=== PATIENT | female | born 1945 | race Caucasian/White ===

== ENCOUNTER → 2016-07-29 | Outpatient (CLI) | payer MEDICARE, BC ==
--- NOTE | 2016-07-30 11:08 | MM ---
Reason for exam: screening (asymptomatic). Last mammogram was performed 11 years and 3 months ago. History: Patient is postmenopausal. Family history of breast cancer. Benign ultrasound-guided cyst aspiration of the left breast, February 04, 2000. Cyst aspiration of the left breast. Physical Findings: A clinical breast exam by your physician is recommended on an annual basis and results should be correlated with mammographic findings. MG 3D Screening Mammo W/Cad Bilateral CC and MLO view(s) were taken. Prior study comparison: July 02, 2015, mammogram, performed at [facility]. The breast tissue is heterogeneously dense. This may lower the sensitivity of mammography. No significant changes when compared with prior studies. ASSESSMENT: Benign, BI-RAD 2 RECOMMENDATION: Routine screening mammogram of both breasts in 1 year.
== END | disposition home or self-care (01) ==
LOC: RADMAMWWP 11:44
PROVIDERS: ATTEND Family Medicine
DX: Z12.31 Encounter for screening mammogram for malignant neoplasm of breast (principal)
CPT/HCPCS: 77063; G0202

== ENCOUNTER 2016-11-02 15:56 | Emergency (ER) | payer MEDICARE, BC ==
[2016-11-02] MEDS ORDERED: HYDROmorphone 1 MG/ML 1 ML SYRINGE IVP STA (16:22)
--- NOTE | 2016-11-02 16:26 | ED ---
General Adult HPI - General Chief complaint: Fall Stated complaint: Fall Time Seen by Provider: 11/02/16 15:58 Source: patient, EMS, RN notes reviewed Mode of arrival: EMS Limitations: no limitations - History of Present Illness Initial comments: 71-year-old female presenting after mechanical fall at home. Patient states she was gardening outside and tripped over a rock and fell onto her left side and right wrist. She states she heard a crack and now has a deformity to her right wrist. She states that both of her hips are hurting as well. She denies any head or neck injury. She denies any loss consciousness. She denies blood thinner use. - Related Data Home Medications Medication Instructions Recorded Confirmed Ezetimibe [Zetia] 10 mg PO HS 11/02/16 11/02/16 Previous Rx's Medication Instructions Recorded Acetaminophen-Codeine 300-30mg 1 tab PO Q6H PRN #16 tablet 11/02/16 [Tylenol #3] Allergies Allergy/AdvReac Type Severity Reaction Status Date / Time hydrocortisone Allergy Rash/Hives Verified 11/02/16 17:50 NSAIDS (Non-Steroidal AdvReac Severe GI Bleeding Verified 11/02/16 17:51 Anti-Inflamma Cjwscnr-[id number]-Dpm Reductase AdvReac Severe Myalgia Verified 11/02/16 17:50 Inhibitor phenylenediamine Allergy Rash/Hives Uncoded 04/29/15 15:00 Review of Systems ROS Statement: Those systems with pertinent positive or pertinent negative responses have been documented in the HPI. ROS Other: All systems not noted in ROS Statement are negative. Past Medical History Past Medical History: Hyperlipidemia, Osteoarthritis (OA) Additional Past Medical History / Comment(s): 05/06/15 PT admitted to floor s/ p total R hip arthroplasty. Other HX OF: BLEEDING ULCER, ANEMIA, hypoglycemia. History of Any Multi-Drug Resistant Organisms: None Reported Past Surgical History: Joint Replacement, Tonsillectomy, Tubal Ligation Additional Past Surgical History / Comment(s): 05/06/15 Total R hip arthroplasty. Other SX HX: CONE BX, EPIDURAL INJECTIONS, LEFT HIP REPLACEMENT Past Anesthesia/Blood Transfusion Reactions: Postoperative Nausea & Vomiting ( PONV) Additional Past Anesthesia/Blood Transfusion Reaction / Comment(s): Pt has recieved blood in the past without reaction. Past Psychological History: No Psychological Hx Reported Additional Psychological History / Comment(s): Pt lives alone. She has an adult son who sometimes stays with her. He children live close. She has a walker and cane to use post-op. She currently was not using any assistive device. She drives. Smoking Status: Never smoker Past Alcohol Use History: Occasional Past Drug Use History: None Reported - Past Family History Mother Family Medical History: Cancer Additional Family Medical History / Comment(s): BLADDER, leukemia, CABG and valve sugeries. Father Family Medical History: Cancer Additional Family Medical History / Comment(s): THROAT, brain. Father at age 54yrs. Brother(s) Family Medical History: Cancer General Exam - General Exam Comments Initial Comments: General: Awake and Alert. No acute distress. Does not appear acutely ill. Eyes: MADHAVI, EOM intact. No nystagmus. No scleral icterus. HENT: Atraumatic, normocephalic. Mucous membranes moist. Trachea midline. No hemotympanum. No epistaxis or evidence of septal hematoma. Neck: The neck is supple, there is no JVD. No posterior neck tenderness. Cardiovascular: Regular rate and rhythm. No murmur, rub, or gallop is appreciated. Distal pulses intact, 2+ DP and radial bilaterally. Respiratory: Lungs are clear to auscultation bilaterally. No wheezes, rales, rhonchi. No respiratory distress. Gastrointestinal: Soft, Nontender. No rebound or guarding. Non-distended. No masses or organomegaly noted. No CVA tenderness. Musculoskeletal: Right wrist with gross deformity, but with good radial pulse. Patient is able to move her fingers on this hand. No other gross deformity. Pelvic rock is intact. Mild tenderness to the left lateral hip. Range of motion is intact on this left hip without pain. No strength deficits. Neurological: A&Ox3. CN II-XII grossly intact, There are no obvious motor or sensory deficits. Coordination appears grossly intact. Speech is normal. Skin: Skin is warm and dry and no rashes or lesions are noted. Psychiatric: Cooperative, appropriate mood & affect, normal judgment. Limitations: no limitations Course Vital Signs 11/02/16 11/02/16 11/02/16 16:00 16:26 18:59 Temperature 98.2 F 97.8 F 98.0 F Pulse Rate 76 85 76 Respiratory 16 18 16 Rate Blood Pressure 148/79 160/92 126/76 O2 Sat by Pulse 98 98 100 Oximetry Procedures - Nerve Block Consent Obtained: verbal consent Time Out Performed: Yes Local Anesthetic Used: Lidocaine 2% Amount of anesthesia used: 10 Side: right Nerve Blocks: hematoma block Procedure Successful: Yes Complications: none Patient Tolerated Procedure: well - Orthopedic Joint Reduction 1 Consent Obtained: verbal consent Time Out Performed: Yes Side: right Joint Reduction Location: wrist Analgesia: hematoma block Local Anesthetic Used: Lidocaine 2% Amount of Anesthetic Used (mLs): 10 Technique Used: direct manipulation Post-Reduction Neuro Exam: intact Post-Reduction Vascular Exam: intact Post Reduction X-Ray Obtained: Yes Post Reduction X-Ray Results: reduced Splint Applied: Yes Patient Tolerated Procedure: well Medical Decision Making - Medical Decision Making 71-year-old female presenting after mechanical fall at home. Initial exam with isolated right wrist injury. No evidence of other significant trauma. Patient is on coumadin per record, but denies any head injury or loss consciousness. Given her age and risk after fall plan for imaging including CT head. Patient arrived in a c-collar to help with stability for transport. She denies neck pain. This collar was cleared clinically without evidence of posterior spinal tenderness. There is good range of motion of the neck without evidence of instability after removal. Patient given medication for pain. Patient does not appear to meet for trauma activation at this time. Laboratory stable CBC, stable BMP. INR is 1.0. Low suspicion of Coumadin use. Wrist x-ray with distal radial fracture. CT head without evidence of acute bleed. Hips and pelvis x-ray without acute findings. CXR with no acute process, congestive changes noted, breathing unlabored, no evidence of CHF exacerbation clinically at this time. Right wrist was reduced after hematoma block performed with good localized anesthesia. Patient tolerated procedure well. After reduction distal hand remained neurovascularly intact. Splint was applied. Repeat imaging was performed with improvement of angulation but still with impacted fracture. Patient and son updated on results and imaging. Discussed fracture management. Discussed need for close orthopedic follow-up. Patient states she would like to follow-up with Dr. Garcia, given follow-up information. Rx for pain medication provided. Discussed concerning signs/symptoms for immediate return to ED. Patient and her son are agreeable with plan and discharge home. - Lab Data Result diagrams: 11/02/16 17:40 11/02/16 17:40 Lab Results 11/02/16 11/02/16 11/02/16 Range/Units 17:40 17:40 17:40 WBC 9.4 (3.8-10.6) k/uL RBC 4.47 (3.80-5.40) m/uL Hgb 13.4 (11.4-16.0) gm/dL Hct 41.1 (34.0-46.0) % MCV 92.0 (80.0-100.0) fL MCH 30.0 (25.0-35.0) pg MCHC 32.6 (31.0-37.0) g/dL RDW 12.9 (11.5-15.5) % Plt Count 293 (150-450) k/uL Neutrophils % 82 % Lymphocytes % 10 % Monocytes % 5 % Eosinophils % 1 % Basophils % 1 % Neutrophils # 7.7 (1.3-7.7) k/uL Lymphocytes # 1.0 (1.0-4.8) k/uL Monocytes # 0.5 (0-1.0) k/uL Eosinophils # 0.1 (0-0.7) k/uL Basophils # 0.1 (0-0.2) k/uL PT 9.9 (9.0-12.0) sec INR 1.0 (<1.1) APTT 19.6 L (22.0-30.0) sec Sodium 139 (137-145) mmol/L Potassium 4.6 (3.5-5.1) mmol/L Chloride 107 (98-107) mmol/L Carbon Dioxide 25 (22-30) mmol/L Anion Gap 7 mmol/L BUN 13 (7-17) mg/dL Creatinine 0.49 L (0.52-1.04) mg/dL Est GFR (MDRD) Af Amer >60 (>60 ml/min/1.73 sqM) Est GFR (MDRD) Non-Af >60 (>60 ml/min/1.73 sqM) Glucose 94 (74-99) mg/dL Calcium 9.1 (8.4-10.2) mg/dL Disposition Clinical Impression: Fracture of right distal radius, Fall Disposition: HOME SELF-CARE Condition: Stable Instructions: Wrist Fracture in Adults (ED) Prescriptions: Acetaminophen-Codeine 300-30mg [Tylenol #3] 1 tab PO Q6H PRN #16 tablet PRN Reason: Pain Referrals: Rahel Cotton MD [Primary Care Provider] - 1-2 days Guilherme Garcia DO [Doctor of Osteopathic Medicine] - 1-2 days Time of Disposition: 18:48
--- NOTE | 2016-11-02 17:03 | CT ---
EXAMINATION TYPE: CT brain wo con DATE OF EXAM: 11/02/2016 4:56 PM HISTORY: Patient complains of dizziness post fall without head trauma today. CT DLP: 1067 mGycm. Automated Exposure Control for Dose Reduction was Utilized. TECHNIQUE: CT scan of the head is performed without contrast. COMPARISON: None. FINDINGS: There is no acute intracranial hemorrhage or midline shift identified. There is diffuse v entricular and sulcal prominence consistent with diffuse age-related cerebral atrophy. There is low- attenuation in the periventricular white matter consistent with chronic small vessel ischemic change. The globes are intact and the visualized sinuses are clear. IMPRESSION: No acute intracranial hemorrhage or midline shift. There is mild diffuse age-related ce rebral atrophy and chronic small vessel ischemic change noted.
--- NOTE | 2016-11-02 17:26 | XR ---
EXAMINATION TYPE: XR Hip Bilateral and AP pelvis DATE OF EXAM: 11/02/2016 5:15 PM COMPARISON: 05/06/2015 right hip HISTORY: Pain after fall TECHNIQUE: A single AP view of the pelvis is obtained. Two views of both hips were obtained. FINDINGS: There is no acute fracture/dislocation evident in the pelvis. The left and sacroiliac lalitha nts appear symmetric. Left hip arthroplasty is in place. Arthroplasties demonstrate no evidence of lo osening. Heterotopic ossification surrounds the right greater and lesser trochanters. No displaced fr acture is seen on the right. Retained stool is seen within the rectum overlying the pubic symphysis.. The overlying soft tissue appears unremarkable. No focal lytic or sclerotic lesion seen in the proximal femurs. The overlying soft tissue is unremar kable. IMPRESSION: There is no acute fracture or dislocation in the pelvis or either hip. Bilateral arthrop lasties without evidence of loosening.
--- NOTE | 2016-11-02 17:29 | XR ---
EXAMINATION TYPE: XR wrist complete RT DATE OF EXAM: 11/02/2016 5:15 PM COMPARISON: NONE HISTORY: Right wrist pain after fall TECHNIQUE: 3 views of the right wrist were obtained FINDINGS: There is a comminuted, impacted and displaced fracture of the distal radius with intra-olivia cular extension. The distal fragment is displaced dorsally and minimally radially. Dorsal displacemen t is approximately 1.5 cm. Foreshortening is approximately 11 mm and radial displacement is approxima tely 8 mm. No overt fracture of the ulna. Carpal rows appear appear maintained. Soft tissue swelling surrounds the right wrist. IMPRESSION: Comminuted, intra-articular, dorsally and minimally radially displaced distal radial frac ture with foreshortening.
--- NOTE | 2016-11-02 17:30 | XR ---
EXAMINATION TYPE: XR chest 2V DATE OF EXAM: 11/02/2016 5:15 PM COMPARISON: NONE HISTORY: Fall today TECHNIQUE: Frontal and lateral views of the chest are obtained. FINDINGS: There are low lung volumes accentuating the pulmonary vasculature. There is cardiomegaly a nd mild pulmonary vascular congestion. There is also blunting of the costophrenic angles likely relat ing to trace pleural effusions. No focal consolidation is seen. No displaced fractures are seen. IMPRESSION: Cardiomegaly and mild pulmonary vascular congestion accentuated by low lung volumes. No displaced fracture.
[2016-11-02 17:49] LABS: Basophils # (A) 0.1 k/uL (0-0.2); Basophils % (A) 1 %; CH 30.7; CHCM 33.5; Eosinophils # (A) 0.1 k/uL (0-0.7); Eosinophils % (A) 1 %; HCT 41.1 % (34.0-46.0); HDW 2.46; HGB 13.4 gm/dL (11.4-16.0); Luc # (Auto) 0.13; Luc % (Auto) 1; Lymphocytes % (A) 10 %; MCHC 32.6 g/dL (31.0-37.0); Mean Platelet Volume 7.3; Monocytes # (A) 0.5 k/uL (0-1.0); Monocytes % (A) 5 %; Neutrophils # (A) 7.7 k/uL (1.3-7.7); Neutrophils % (A) 82 %; RBC 4.47 m/uL (3.80-5.40); RDW 12.9 % (11.5-15.5); WBC 9.4 k/uL (3.8-10.6); WBC (Perox) 9.56
[2016-11-02 18:09] LABS: Anion Gap 7 mmol/L; Blood Urea Nitrogen 13 mg/dL (7-17); Calcium 9.1 mg/dL (8.4-10.2); Carbon Dioxide 25 mmol/L (22-30); Chloride 107 mmol/L (98-107); Glucose 94 mg/dL (74-99); Non-African American GFR(MDRD) >60 (>60 ml/min/1.73 sqM); Sodium 139 mmol/L (137-145)
[2016-11-02 18:12] LABS: Prothrombin Time 9.9 sec (9.0-12.0)
[2016-11-02 18:15] LABS: Partial Thromboplastin Time 19.6 sec (22.0-30.0)
[2016-11-02 18:19] LABS: Potassium 4.6 mmol/L (3.5-5.1)
--- NOTE | 2016-11-02 18:41 | XR ---
EXAMINATION TYPE: XR wrist limited RT DATE OF EXAM: 11/02/2016 6:15 PM COMPARISON: NONE HISTORY: Fracture TECHNIQUE: 2 view postreduction radiograph. FINDINGS: In addition to the previously described distal right radial fracture, which has slightly im proved anatomic alignment there is an additional ulnar styloid fracture with 4 mm radial displacement . The degree of dorsal displacement of the distal fracture fragments of the distal radial fracture andrew s improved from 15 mm to 10 mm. Additionally there is less impaction than on the prior exam. Overlyin g soft tissue swelling remains. IMPRESSION: 1. Improved anatomic alignment post reduction with persistent dorsal displacement of the distal radia l fracture fragments and foreshortening. 2. Ulnar styloid fracture with 4 mm radial displacement.
[2016-11-02] MEDS ORDERED: ACET/COD 300 MG/30 MG STARTER PACK 6 TAB BTL PO STA (18:47)
[2016-11-02 19:00] VITALS: BP 126/76; PULSE 76; RESP 16; TEMP 98
== END 2016-11-02 18:59 | disposition home or self-care (01) ==
LOC: EC 15:56
DX: S52.501A Unspecified fracture of the lower end of right radius, initial encounter for closed fracture (principal); E78.5 Hyperlipidemia, unspecified; Z79.899 Other long term (current) drug therapy; Z88.6 Allergy status to analgesic agent; Z88.8 Allergy status to other drugs, medicaments and biological substances; W01.0XXA Fall on same level from slipping, tripping and stumbling without subsequent striking against object, initial encounter; Y92.009 Unspecified place in unspecified non-institutional (private) residence as the place of occurrence of the external cause
CPT/HCPCS: 36415; 80048; 85025; 85610; 85730; 71020; 73521; 73100; 73110; 70450; 99284; 25605; 96374; J1170

== ENCOUNTER → 2017-08-04 | Outpatient (CLI) | payer MEDICARE, BC ==
--- NOTE | 2017-08-05 13:10 | MM ---
Reason for exam: screening (asymptomatic). Last mammogram was performed 1 year ago. History: Patient is postmenopausal. Family history of breast cancer. Benign ultrasound-guided cyst aspiration of the left breast, February 04, 2000. Cyst aspiration of the left breast. Physical Findings: A clinical breast exam by your physician is recommended on an annual basis and results should be correlated with mammographic findings. MG 3D Screening Mammo W/Cad Bilateral CC and MLO view(s) were taken. Prior study comparison: July 29, 2016, bilateral MG 3d screening mammo w/cad. July 02, 2015, mammogram, performed at [facility]. The breast tissue is heterogeneously dense. This may lower the sensitivity of mammography. Stable benign calcifications. There is chronic nodularity bilaterally. There is no dominant lesion. No significant changes when compared with prior studies. ASSESSMENT: Benign, BI-RAD 2 RECOMMENDATION: Routine screening mammogram of both breasts in 1 year.
== END | disposition home or self-care (01) ==
LOC: RADMAMWWP 07-19 13:29
PROVIDERS: ATTEND Family Medicine
DX: Z12.31 Encounter for screening mammogram for malignant neoplasm of breast (principal)
CPT/HCPCS: 77063; 77067

== ENCOUNTER → 2018-08-18 | Outpatient (CLI) | payer MEDICARE, BC ==
--- NOTE | 2018-08-18 14:43 | XR ---
EXAMINATION TYPE: XR cervical spine comp DATE OF EXAM: 08/18/2018 COMPARISON: NONE HISTORY: Pain TECHNIQUE: Four views are submitted. FINDINGS: The odontoid is intact. There are no compression deformities. The prevertebral soft tissue structur es are within normal limits. There is multilevel facet arthropathy and degenerative disc disease and grade 1 anterolisthesis of C4 on C5. Severe degenerative disc disease C5-6 and C6-C7 with anterior hypertrophic spurring. Lung apices are clear. Diffuse osteopenia noted. Foraminal encroachment level C4-C7 bilaterally. [place] toid view limited but grossly intact. IMPRESSION: 1. Severe multilevel degenerative disc disease and facet arthropathy with grade 1 anterolisthesis C4 on C5. Recommend follow-up MRI. Multilevel foraminal encroachment suspected.
--- NOTE | 2018-08-18 14:50 | XR ---
EXAMINATION TYPE: XR shoulder complete LT DATE OF EXAM: 08/18/2018 COMPARISON: NONE HISTORY: Pain TECHNIQUE: Three views are submitted. FINDINGS: Diffuse osteopenia. There is narrowing of the glenohumeral joint. Mild hypertrophic change of the AC joint. No acute fracture. No dislocation. No erosive changes. IMPRESSION: 1. Arthropathy.
== END | disposition home or self-care (01) ==
LOC: RADXRMAIN 14:06
PROVIDERS: ATTEND Family Medicine
DX: M19.012 Primary osteoarthritis, left shoulder (principal); M43.12 Spondylolisthesis, cervical region; M50.30 Other cervical disc degeneration, unspecified cervical region; M46.92 Unspecified inflammatory spondylopathy, cervical region
CPT/HCPCS: 72050

== ENCOUNTER 2018-08-25 10:12 | Day surgery (SDC) | payer MEDICARE, BC ==
[2018-08-23 10:35] VITALS: BMI 28.8
[~2018-08-25 10:12] MED LIST: LIDOCAINE 1% 20 ML VIAL (10MG/ML) FOR IV START INTRADERMA PRN
[2018-08-25 10:35] VITALS: TEMP 98.2
[2018-08-25 10:51] LABS: Glucose,Whole Blood 99 mg/dL (75-99)
[2018-08-25] MEDS: LACTATED RINGERS 1,000 ML IV SCH ×2 (10:53→10:54)
[2018-08-25] MEDS ORDERED: PROPOFOL 10 MG/ML 20 ML VIAL IV ONE (10:56)
[2018-08-25] MEDS ORDERED: LIDOCAINE 1% INJ 10MG/ML (20 ML MDV) ONE (10:56)
[2018-08-25 11:49] VITALS: RESP 16
--- NOTE | 2018-08-25 11:49 | P.PCN ---
Date of Procedure: 08/25/18 Description of Procedure: BRIEF HISTORY: The patient is a pleasant 73-year-old female with a medical history significant for hyperlipidemia who presents for outpatient colonoscopy. She reports it has been 10 years since her last colonoscopy. She denies any polyps at that time. No family history of colon cancer. She denies any change in her bowels, constipation, diarrhea, hematochezia or melena. PROCEDURE PERFORMED: Colonoscopy with polypectomy. PREOPERATIVE DIAGNOSIS: Screening colonoscopy, last colonoscopy 10 years ago. ESTIMATED BLOOD LOSS: Minimal. IV sedation per Anesthesia. PROCEDURE: After informed consent was obtained, the patient, was brought into the endoscopy unit. IV sedation was administered by Anesthesia under continuous monitoring. Digital rectal examination was normal. Initially the Olympus CF-190 flexible video colonoscope was then inserted in the rectum, gradually advanced into the cecum without any difficulty. Careful examination was performed as the scope was gradually being withdrawn. Ileocecal valve and the appendiceal orifice were visualized and appeared normal. Prep was good. Mucosa of the cecum, ascending colon, transverse colon, descending colon, sigmoid colon, and rectum appeared normal. Sessile 8 mm polyp in the ascending colon removed with cold snare polypectomy. Sessile 4 mm polyp in the descending colon removed with cold forcep polypectomy. Sessile 2 mm polyp in the rectum removed with cold forcep polypectomy. Moderate sigmoid and descending colon diverticulosis. Retroflexion was performed in the rectum and no lesions were seen, internal hemorrhoids were noted. The patient tolerated the procedure well. IMPRESSION: 1. Ascending colon polyp removed with cold snare polypectomy. Descending and rectal polyps removed with cold forcep polypectomy. 2. Diverticulosis 3. Internal hemorrhoids. RECOMMENDATIONS: Findings of this examination were discussed with the patient and her sons. Await pathology from polypectomies. Okay for high-fiber diet. Repeat colonoscopy in 5 years pending pathology from polypectomies.
[2018-08-25 12:04] VITALS: BP 130/82; PULSE 58
[2018-08-25 12:24] LABS: Glucose,Whole Blood 106 mg/dL (75-99)
== END 2018-08-25 12:59 | disposition home or self-care (01) ==
LOC: ORWHC2ENDO 10:12
PROVIDERS: ATTEND Internal Medicine
DX: Z12.11 Encounter for screening for malignant neoplasm of colon (principal); D12.2 Benign neoplasm of ascending colon; D12.4 Benign neoplasm of descending colon; K62.1 Rectal polyp; K64.8 Other hemorrhoids; Z88.6 Allergy status to analgesic agent; Z88.8 Allergy status to other drugs, medicaments and biological substances; E78.5 Hyperlipidemia, unspecified; M19.90 Unspecified osteoarthritis, unspecified site
CPT/HCPCS: 88305; 45380; 45385; J2001; J2704

== ENCOUNTER → 2018-09-07 | Outpatient (CLI) | payer MEDICARE, BC ==
--- NOTE | 2018-09-07 15:38 | BD ---
EXAMINATION TYPE: Axial Bone Density DATE OF EXAM: 09/07/2018 COMPARISON: NONE CLINICAL HISTORY: Height: 64 Weight: 167.7 FRAX RISK QUESTIONS: Alcohol (3 or more units per day): no Family History (Parent hip fracture): no Glucocorticoids (More than 3mos): no (Ex: prednisone, prednisolone, methylprednisolone, dexamethasone, and hydrocortisone). History of Fracture in Adulthood: yes Secondary Osteoporosis: 1. Type 1 Diabetes: no 2. Hyperthyroidism: no 3. Menopause before 45: no 4. Malnutrition: no 5. Chronic liver disease: no Rheumatoid Arthritis: yes Current Tobacco Use: no RISK FACTORS HISTORY OF: History of Wrist Fracture: right wrist When: 2 years ago Surgery to Spine/Hip(right/left)/Wrist (right/left): bilateral hips replacements Family History of Osteoporosis: no Active: yes Diet low in dairy products/other sources of calcium: yes Postmenopausal woman: age 53 Lost more than 2 inches in height since high school: no MEDICATIONS: zetia Additional History: EXAM MEASUREMENTS: Bone mineral densitometry was performed using the Filtr8 System. Bone mineral density as measured about the Lumbar spine is: ----- L1-L4(G/cm2): 1.006 T Score Values are as follows: ----- L2: -1.9 ----- L3: -0.9 ----- L4: -1.5 ----- L1-L4: -1.5 Bone mineral density has: decreased -8.5 % since study of: 9. Bone mineral density about the L Wrist (g/cm2): 0.508 T Score values are as follows: -----Dist. R+U: -4.4 -----Prox. R+U: -1.7 -----Radius total: -2.8 Bone mineral density : baseline IMPRESSION: 1. Osteoporosis of the forearm. 2. Osteopenia of the lumbar spine. NOTE: T-SCORE=SD OF THE YOUNG ADULT MEAN.
--- NOTE | 2018-09-09 10:20 | MM ---
Reason for exam: screening (asymptomatic). Last mammogram was performed 1 year and 1 month ago. History: Patient is postmenopausal. Family history of breast cancer. Benign ultrasound-guided cyst aspiration of the left breast, February 04, 2000. Cyst aspiration of the left breast. Physical Findings: A clinical breast exam by your physician is recommended on an annual basis and results should be correlated with mammographic findings. MG 3D Screening Mammo W/Cad Bilateral CC and MLO view(s) were taken. Prior study comparison: August 04, 2017, bilateral MG 3d screening mammo w/cad. July 29, 2016, bilateral MG 3d screening mammo w/cad. The breast tissue is heterogeneously dense. This may lower the sensitivity of mammography. Left asymmetric densities are unchanged from 2018. No significant changes when compared with prior studies. ASSESSMENT: Negative, BI-RAD 1 RECOMMENDATION: Routine screening mammogram of both breasts in 1 year.
== END | disposition home or self-care (01) ==
LOC: RADMAMWWP 12:39
PROVIDERS: ATTEND Family Medicine
DX: Z12.31 Encounter for screening mammogram for malignant neoplasm of breast (principal); M81.0 Age-related osteoporosis without current pathological fracture; M85.88 Other specified disorders of bone density and structure, other site
CPT/HCPCS: 77063; 77067; 77080

== ENCOUNTER → 2020-01-23 | Outpatient (CLI) | payer MEDICARE, BC ==
--- NOTE | 2020-01-29 11:03 | MM ---
Reason for exam: screening (asymptomatic). Last mammogram was performed 1 year and 4 months ago. History: Patient is postmenopausal. Family history of breast cancer in 2 aunts. Benign ultrasound-guided cyst aspiration of the left breast, February 04, 2000. Cyst aspiration of the left breast. Took estrogen for 1 year beginning at age 51. Took progesterone for 1 year beginning at age 51. Physical Findings: A clinical breast exam by your physician is recommended on an annual basis and results should be correlated with mammographic findings. MG 3D Screening Mammo W/Cad Bilateral CC and MLO view(s) were taken. Prior study comparison: September 07, 2018, bilateral MG 3d screening mammo w/cad. August 04, 2017, bilateral MG 3d screening mammo w/cad. The breast tissue is heterogeneously dense. This may lower the sensitivity of mammography. No significant changes when compared with prior studies. ASSESSMENT: Benign, BI-RAD 2 RECOMMENDATION: Routine screening mammogram of both breasts in 1 year.
== END | disposition home or self-care (01) ==
LOC: RADMAMWWP 10:43
PROVIDERS: ATTEND Family Medicine
DX: Z12.31 Encounter for screening mammogram for malignant neoplasm of breast (principal)
CPT/HCPCS: 77063; 77067

== ENCOUNTER → 2021-05-02 | Outpatient (CLI) | payer MEDICARE, BC ==
--- NOTE | 2021-05-07 09:04 | MM ---
Reason for exam: screening (asymptomatic). Last mammogram was performed 1 year and 3 months ago. History: Patient is postmenopausal. Family history of breast cancer in maternal aunt at age 72 and breast cancer in aunt. Benign ultrasound-guided cyst aspiration of the left breast, February 04, 2000. Cyst aspiration of the left breast. Took estrogen for 1 year beginning at age 51. Took progesterone for 1 year beginning at age 51. Physical Findings: A clinical breast exam by your physician is recommended on an annual basis and results should be correlated with mammographic findings. MG 3D Screening Mammo W/Cad Bilateral CC and MLO view(s) were taken. Prior study comparison: January 23, 2020, bilateral MG 3d screening mammo w/cad. September 07, 2018, bilateral MG 3d screening mammo w/cad. The breast tissue is heterogeneously dense. This may lower the sensitivity of mammography. No significant changes when compared with prior studies. ASSESSMENT: Negative, BI-RAD 1 RECOMMENDATION: Routine screening mammogram of both breasts in 1 year.
== END | disposition home or self-care (01) ==
LOC: RADMAMWWP 13:52
PROVIDERS: ATTEND Family Medicine
DX: Z12.31 Encounter for screening mammogram for malignant neoplasm of breast (principal); Z78.0 Asymptomatic menopausal state; Z80.3 Family history of malignant neoplasm of breast
CPT/HCPCS: 77063; 77067

== ENCOUNTER → 2022-06-17 | Outpatient (CLI) | payer MEDICARE, BC ==
--- NOTE | 2022-06-17 15:10 | BD ---
EXAMINATION TYPE: Axial Bone Density DATE OF EXAM: 06/17/2022 COMPARISON: 09/07/2018 CLINICAL HISTORY: 77 years old Female. ICD-10 CODE: Z78.0 ASYMPTOMATIC MENOPAUSAL STA Height: 62.5 Weight: 150 FRAX RISK QUESTIONS: Family History (Parent hip fracture): NO History of Fracture in Adulthood: YES Secondary Osteoporosis: NO Rheumatoid Arthritis: NO RISK FACTORS HISTORY OF: Hip Fracture (Right/Left): YES BOTH When: 2002, 2007 History of Wrist Fracture: YES RT When: AGE 73 Surgery to Hip(right/left)/Wrist (right): YES When: 2002,2007,2018 Family History of Osteoporosis: NO Active: YES Diet low in dairy products/other sources of calcium: NO Postmenopausal woman: YES 51 Lost more than 2 inches in height since high school: NO Frequent falls: NO Poor Health: NO MEDICATIONS: Additional Medications: NO EXAM MEASUREMENTS: Bone mineral densitometry was performed using the [employer] System. Bone mineral density as measured about the Lumbar spine is: ----- L1-L4(G/cm2): 1.010 T Score Values are as follows: ----- L1: -1.9 ----- L2: -2.1 ----- L3: -1.1 ----- L4: -1.0 ----- L1-L4: -1.4 Bone mineral density has: Increased 0.4% since study of: 09/07/2018 Bone mineral density about the L Wrist (g/cm2): 0.498 T Score values are as follows: -----Dist. R+U: -4.3 -----Prox. R+U: -2.2 -----Radius total: -2.9 Bone mineral density has: Decreased -5.8% since study of: 09/07/2018 FRAX%s: NOT DONE BILAT HIP REPLACEMENT IMPRESSION: Osteoporosis (T Score less than -2.5). There is increased fracture risk and therapy is usually indicated based on age. Re-Screen 1-2 years. NOTE: T-SCORE=SD OF THE YOUNG ADULT MEAN.
--- NOTE | 2022-06-18 15:54 | MM ---
Reason for Exam: Screening (asymptomatic). Last mammogram was performed 1 year(s) and 1 month(s) ago. Patient History: Menarche at age 11. First Full-Term at age 22. Postmenopausal. Patient has history of breast feeding. Estrogen for 1 year from age 51 until age 52. Progesterone for 1 year from age 51 until age 52. Cyst Aspiration on the Left side. 02/04/2000, Benign Ultrasound-Guided Cyst Aspiration on the left side. Maternal aunt had breast cancer, age 72. Maternal aunt had breast cancer. Risk Values: Vero 5 year model risk: 1.7%. NCI Lifetime model risk: 3.5%. Prior Study Comparison: 09/07/2018 Bilateral Screening Mammogram, [facility]. 01/23/2020 Bilateral Screening Mammogram, [facility]. 05/02/2021 Bilateral Screening Mammogram, [facility]. Tissue Density: The breast tissue is heterogeneously dense. This may lower the sensitivity of mammography. Findings: Analyzed By CAD. There is a spiculated density in the lower inner midportion left breast. Change in. Additional evaluation with compression views are recommended. The right breast appears stable. Overall Assessment: Incomplete: need additional imaging evaluation, BI-RAD 0 Management: Diagnostic Mammogram of the left breast. A negative mammogram report should not preclude additional follow up of suspicious palpable abnormalities. Patient should continue monthly self breast exam. A clinical breast exam by your physician is recommended on an annual basis and results should be correlated with mammographic findings. Electronically signed and approved by: Ramana Santos D.O. Radiologis
== END | disposition home or self-care (01) ==
LOC: RADBDWWP 13:26
PROVIDERS: ATTEND Family Medicine
DX: Z12.31 Encounter for screening mammogram for malignant neoplasm of breast (principal); M81.0 Age-related osteoporosis without current pathological fracture; M85.89 Other specified disorders of bone density and structure, multiple sites; Z78.0 Asymptomatic menopausal state; Z80.3 Family history of malignant neoplasm of breast
CPT/HCPCS: 77063; 77067; 77080

== ENCOUNTER → 2022-06-26 | Outpatient (CLI) | payer MEDICARE, BC ==
--- NOTE | 2022-06-26 10:39 | MM ---
Reason for Exam: Additional evaluation requested from abnormal screening. Last screening mammogram was performed less than 1 month ago. Patient History: Menarche at age 11. First Full-Term at age 22. Postmenopausal. Patient has history of breast feeding. Estrogen for 1 year from age 51 until age 52. Progesterone for 1 year from age 51 until age 52. Cyst Aspiration on the Left side. 02/04/2000, Benign Ultrasound-Guided Cyst Aspiration on the left side. Maternal aunt had breast cancer, age 72. Maternal aunt had breast cancer. Risk Values: Vero 5 year model risk: 1.7%. NCI Lifetime model risk: 3.5%. Prior Study Comparison: 01/23/2020 Bilateral Screening Mammogram, [facility]. 05/02/2021 Bilateral Screening Mammogram, [facility]. 06/17/2022 Bilateral MG 3D screening mammo w/cad, [facility]. Tissue Density: Left: The breast tissue is heterogeneously dense. This may lower the sensitivity of mammography. Findings: Analyzed By CAD. Spiculated density persists in the lower inner left breast middle depth 4 cm from the nipple with compression. Overall Assessment: Incomplete: need additional imaging evaluation, BI-RAD 0 Management: Diagnostic Breast Ultrasound of the left breast. A clinical breast exam by your physician is recommended on an annual basis and results should be correlated with mammographic findings. This exam should not preclude additional follow-up of suspicious palpable abnormalities. Results were given to the patient verbally at the time of exam. Electronically signed and approved by: Binu Fernandez D.O.
--- NOTE | 2022-06-26 10:53 | USB ---
Reason for Exam: Additional evaluation requested from abnormal screening. Patient History: Menarche at age 11. First Full-Term at age 22. Postmenopausal. Patient has history of breast feeding. Estrogen for 1 year from age 51 until age 52. Progesterone for 1 year from age 51 until age 52. Cyst Aspiration on the Left side. 02/04/2000, Benign Ultrasound-Guided Cyst Aspiration on the left side. Maternal aunt had breast cancer, age 72. Maternal aunt had breast cancer. Risk Values: Vero 5 year model risk: 1.7%. NCI Lifetime model risk: 3.5%. Technique: Method: Targeted. Prior Study Comparison: 01/23/2020 Bilateral Screening Mammogram, [facility]. 05/02/2021 Bilateral Screening Mammogram, [facility]. 06/17/2022 Bilateral MG 3D screening mammo w/cad, [facility]. Findings: The lower inner quadrant of the left breast, the axilla of the left breast and the retroareolar of the left breast were scanned. Targeted ultrasound of the right breast from 6-8 o'clock was performed additional evaluation of the axilla nipple. There is an irregular shaped hypoechoic mass with not parallel orientation and spiculated margins in the left breast at 7:00 5 cm from the nipple. This measures 0.8 x 0.8 x 0.9 cm. There is posterior acoustical shadowing. Color flow demonstrated within the rim. No suspicious axillary adenopathy. Overall Assessment: Highly suggestive of malignancy, BI-RAD 5 Management: Ultrasound Core Biopsy of the left breast. A clinical breast exam by your physician is recommended on an annual basis and results should be correlated with mammographic findings. This exam should not preclude additional follow-up of suspicious palpable abnormalities. Results were given to the patient verbally at the time of exam. Electronically signed and approved by: Binu Fernandez D.O.
== END | disposition home or self-care (01) ==
LOC: RADMAMWWP 10:03
PROVIDERS: ATTEND Family Medicine
DX: R92.8 Other abnormal and inconclusive findings on diagnostic imaging of breast (principal); Z78.0 Asymptomatic menopausal state; Z80.3 Family history of malignant neoplasm of breast
CPT/HCPCS: 77065; 76642; G0279; 77061

== ENCOUNTER → 2022-07-08 | Day surgery (SDC) | payer MEDICARE, BC ==
--- NOTE | 2022-07-14 08:48 | USB ---
Risk Values: Vero 5 year model risk: 1.7%. NCI Lifetime model risk: 3.5%. Prior Study Comparison: 05/02/2021 Bilateral Screening Mammogram, [facility]. 06/17/2022 Bilateral MG 3D screening mammo w/cad, [facility]. 06/26/2022 Left MG 3D work up w/cad , [facility]. Pathology Description: Needle Type: Mammotone Cores: 5 Skin Nicks: 1 Gauge: 13 The procedure of ultrasound guided core biopsy was explained to the patient. Benefits, alternatives, and risks were discussed. An informed consent was then obtained. The patient was placed in supine positioning for imaging and for the procedure. The overlying skin was prepped and draped in usual sterile fashion. Lidocaine buffered with bicarbonate was used as anesthetic into the skin and subcutaneous tissue up to area of concern in the left breast. A natanael was made with surgical scalpel. Under ultrasound guidance, a 12-gauge vacuum assisted biopsy gun device was used to obtain 5 core samples. Following this, a biopsy clip was left in lesion. The patient tolerated the procedure well without any immediate complication. The patient was kept in the radiology department for short stay after the procedure and then discharged home in stable condition. Postprocedure mammogram: The patient was transferred to mammography for physician ordered post procedure mammogram for clip placement verification. Impression: Successful, uncomplicated ultrasound guided core biopsy of area of concern in the left breast, full pathology results to follow. Pathology Results: Result: Malignant, Invasive ductal carcinoma. LEFT BREAST, SEVEN O'CLOCK, CORE BIOPSY: Invasive low grade ductal carcinoma, Grade 1 (see Surgical Pathology Cancer Case Summary and Comment). Overall Assessment: Malignant Management: Surgical Consultation of the left breast. Electronically signed and approved by: Braden Noriega DO
== END ==
LOC: RADUSWWP 09:56
PROVIDERS: ATTEND Surgery
DX: Z12.31 Encounter for screening mammogram for malignant neoplasm of breast (principal); C50.912 Malignant neoplasm of unspecified site of left female breast; R92.0 Mammographic microcalcification found on diagnostic imaging of breast; Z17.0 Estrogen receptor positive status [ER+]
CPT/HCPCS: 88305; 88342; 88341; 19083; A4648

== ENCOUNTER → 2022-07-13 | Outpatient (CLI) | payer MEDICARE, BC ==
[~2022-07-13] MED LIST changes: -LIDOCAINE 1% 20 ML VIAL (10MG/ML) FOR IV START INTRADERMA PRN; +SODIUM CHLORIDE 0.9% 500 ML 500 ML in EMPTY BAG 1 BAG IV PRN; +ZOLEDRONIC ACID 5 MG in SODIUM CHLORIDE 0.9% 100 ML IV NR
[2022-07-13 13:04] VITALS: BP 163/89; PULSE 98; RESP 16; TEMP 99
== END ==
LOC: PROCWHC3 12:32
PROVIDERS: ATTEND Family Medicine
DX: M81.0 Age-related osteoporosis without current pathological fracture (principal); Z88.8 Allergy status to other drugs, medicaments and biological substances; Z88.6 Allergy status to analgesic agent
CPT/HCPCS: 96365; J3489

== ENCOUNTER → 2022-07-17 | Outpatient (CLI) | payer MEDICARE, BC ==
--- NOTE | 2022-07-08 12:37 | MM ---
Reason for Exam: Post Procedure Mammogram. Last screening mammogram was performed less than 1 month ago. Patient History: Menarche at age 11. First Full-Term at age 22. Postmenopausal. Patient has history of breast feeding. Estrogen for 1 year from age 51 until age 52. Progesterone for 1 year from age 51 until age 52. Cyst Aspiration on the Left side. 02/04/2000, Benign Ultrasound-Guided Cyst Aspiration on the left side. Maternal aunt had breast cancer, age 72. Risk Values: Vero 5 year model risk: 1.7%. NCI Lifetime model risk: 3.5%. Prior Study Comparison: 08/04/2017 Bilateral Screening Mammogram, [facility]. 09/07/2018 Bilateral Screening Mammogram, [facility]. 05/02/2021 Bilateral Screening Mammogram, [facility]. 06/17/2022 Bilateral MG 3D screening mammo w/cad, [facility]. 06/26/2022 Left MG 3D work up w/cad LT, [facility]. Tissue Density: Left: The breast tissue is heterogeneously dense. This may lower the sensitivity of mammography. Overall Assessment: Post procedure mammogram for marker placement Management: Post Mammogram for Jimenez Placement of the left breast. Electronically signed and approved by: Braden Noriega DO
--- NOTE | 2022-07-17 13:37 | P.GSHP ---
History of Present Illness H&P Date: 07/17/22 Chief Complaint: Stage I a left breast carcinoma Felisha is a 77-year-old white female seen in consultation for Dr. Cotton regarding the stage IA left breast invasive ductal carcinoma. She underwent a bilateral screening mammogram on [id number]. Sibilated lesion in the lower inner aspect of the left breast. This led to a left breast diagnostic mammogram which was performed by 1922 as well as in ultrasound 06-26-22. On ultrasound the patient was noted to have a lesion in the left breast which was less than 1 cm in size and core biopsy was recommended. Core biopsy was performed and which revealed invasive low-grade ductal carcinoma grade 1 ER positive NH low positive and HER-2/tay negative. KI index is 5-10%. The patient did not feel any lumps masses or nodules of concern prior to her procedure. She had a mole removed form her right breast at the age of 14. She has not had any recent trauma or infection of the breast. She tolerated the procedure without difficulty, but did develop some bruising. 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 Social History: nicotine: none alcohol: stopped in the ; wine occasional drugs: Marijuana in the not now - Constitutional Constitutional: Denies chills, Denies fever - EENT Eyes: denies blurred vision, denies pain Ears: deny: decreased hearing, tinnitus Ears, nose, mouth and throat: Reports sore throat, Denies headache - Breasts Breasts: bilateral: as per HPI - Cardiovascular Cardiovascular: Denies chest pain, Denies shortness of breath - Respiratory Respiratory: Denies cough, Denies 7 - Gastrointestinal Comment: history of PUD Gastrointestinal: Denies abdominal pain, Denies diarrhea, Denies nausea, Denies vomiting - Genitourinary (Female) Genitourinary: Denies dysuria, Denies hematuria - Menstruation Menstruation: Reports postmenopausal - Musculoskeletal Musculoskeletal: Reports as per HPI - Integumentary Integumentary: Denies pruritus, Denies rash - Neurological Neurological: Denies numbness, Denies weakness - Psychiatric Psychiatric: Denies anxiety, Denies depression - Endocrine Endocrine: Reports weight change - Hematologic/Lymphatic Comment: DVT right leg superficial - Allergic/Immunologic Allergic/Immunologic: Reports as per HPI Past Medical History Past Medical History: Osteoarthritis (OA) Additional Past Medical History / Comment(s): 05/06/15 PT admitted to floor s/p total R hip arthroplasty. Other HX OF: BLEEDING ULCER, ANEMIA, hypoglycemia. 2008 Left hip replacement History of Any Multi-Drug Resistant Organisms: None Reported Past Surgical History: Joint Replacement, Tonsillectomy, Tubal Ligation Additional Past Surgical History / Comment(s): 05/06/15 Total R hip arthroplasty. Other SX HX: CONE BX, EPIDURAL INJECTIONS, LEFT HIP REPLACEMENT Past Anesthesia/Blood Transfusion Reactions: Postoperative Nausea & Vomiting (PONV) Additional Past Anesthesia/Blood Transfusion Reaction / Comment(s): Pt has recieved blood in the past without reaction. Smoking Status: Never smoker - Past Family History Mother Family Medical History: Cancer Additional Family Medical History / Comment(s): BLADDER, leukemia, CABG and valve sugeries. Father Family Medical History: Cancer Additional Family Medical History / Comment(s): THROAT, brain. Father at age 54yrs. Brother(s) Family Medical History: Cancer Additional Family Medical History / Comment(s): skin Medications and Allergies Home Medications Medication Instructions Recorded Confirmed Type Acetaminophen [Tylenol Extra 500 mg PO Q6H PRN 08/23/18 07/13/22 History Strength] Aspirin [[place] Aspirin EC] 81 mg PO DAILY 06/29/22 07/13/22 History Turmeric Root Extract [Turmeric 500 mg PO DAILY 06/29/22 07/13/22 History Curcumin] Allergies Allergy/AdvReac Type Severity Reaction Status Date / Time hydrocortisone Allergy Rash/Hives Verified 07/13/22 13:02 NSAIDS (Non-Steroidal AdvReac Severe GI Bleeding Verified 07/13/22 13:02 Anti-Inflamma Jqqhvnl-BWD-YxG Reductase AdvReac Severe Myalgia Verified 07/13/22 13:02 Inhibitor [Qcyzwft-Dws-Iwx Reductase Inhibitor] phenylenediamine Allergy Rash/Hives Uncoded 07/13/22 13:02 Surgical - Exam - General moderate distress - Eyes normal ocular movement - ENT no hearing loss - Neck trachea midline - Respiratory normal respiratory effort - Cardiovascular Rhythm: regular Heart Sounds: normal: S1, S2 - Abdomen Abdomen: soft, non tender, no guarding, no rigid, no rebound - Integumentary normal turgor - Neurologic no disoriented, no combative - Musculoskeletal normal gait, normal posture - Psychiatric oriented to time, oriented to person, oriented to place, speech is normal, memory intact Breast Exam: BRA: 36B Inspection: bilateral grade 2 ptosis; ecchymosis lower inner left breast palpation: right breast: Multiple positional exam fibrocystic changes no dominant masses or nodules of concern Right axilla: No adenopathy of concern Left breast: Multiple positional exam fibrocystic changes, ecchymosis lower inner aspect with hematoma present Left axilla: No adenopathy of concern Results Mammogram and ultrasound personally reviewed with radiology Assessment and Plan Assessment: Impression: hypoglycemia allergic to statins arthritis Stage IA invasive ductal carcinoma left breast Plan: Presentation of case at tumor board Probable needle localization lumpectomy with possible onco- plastic tissue transfer CC: Dr. Cotton
== END ==
LOC: WWCWWP 12:52
PROVIDERS: ATTEND Surgery
DX: C50.912 Malignant neoplasm of unspecified site of left female breast (principal); M19.90 Unspecified osteoarthritis, unspecified site; Z79.82 Long term (current) use of aspirin; E16.2 Hypoglycemia, unspecified; Z88.6 Allergy status to analgesic agent; Z88.8 Allergy status to other drugs, medicaments and biological substances
CPT/HCPCS: 77065

== ENCOUNTER 2022-09-01 09:46 | Day surgery (SDC) | payer MEDICARE, BC ==
[~2022-09-01 09:46] MED LIST changes: +HEPARIN SODIUM,PORCINE/PF 5,000 UNIT/0.5 ML SYRINGE SQ PRN; +HYDROmorphone 0.5 MG/0.5 ML SYRINGE IVP PRN; +LACTATED RINGERS 1,000 ML IV SCH; +LIDOCAINE 1% (10MG/ML) FOR IV START INTRADERMA PRN; +ONDANSETRON 4 MG/2 ML VIAL IVP ONE; +Pre Op ABX Message 1 EACH MISC MISCELLANE ONE; -SODIUM CHLORIDE 0.9% 500 ML 500 ML in EMPTY BAG 1 BAG IV PRN; -ZOLEDRONIC ACID 5 MG in SODIUM CHLORIDE 0.9% 100 ML IV NR
[2022-09-01 10:51] LABS: Glucose,Whole Blood 93 mg/dL (70-110)
[2022-09-01] MEDS ORDERED: ALPRAZolam 0.25 MG TAB ONE (10:51)
[2022-09-01 11:11] LABS: Basophils # (A) 0.1 k/uL (0-0.2); Basophils % (A) 1 %; Eosinophils # (A) 0.1 k/uL (0-0.7); Eosinophils % (A) 2 %; HGB 13.9 gm/dL (11.4-16.0); Lymphocytes # (A) 0.6 k/uL (1.0-4.8); Lymphocytes % (A) 9 %; MCH 30.9 pg (25.0-35.0); MCHC 34.9 g/dL (31.0-37.0); MCV 88.8 fL (80.0-100.0); Mean Platelet Volume 7.1; Monocytes # (A) 0.3 k/uL (0-1.0); Monocytes % (A) 4 %; Neutrophils # (A) 5.5 k/uL (1.3-7.7); Neutrophils % (A) 82 %; Platelet Count 301 k/uL (150-450); RDW 13.1 % (11.5-15.5); WBC 6.7 k/uL (3.8-10.6)
[2022-09-01] MEDS ORDERED: LIDOCAINE 1% INJ 10MG/ML (10 ML MDV) SQ ONE (11:37)
--- NOTE | 2022-09-01 12:08 | NM ---
EXAMINATION TYPE: NM sentinel node injection DATE OF EXAM: 09/01/2022 COMPARISON: No direct comparisons. HISTORY: Left breast cancer TECHNIQUE AND FINDINGS: The procedure of sentinel lymph node injection was explained to the patient. The benefits, alternatives, and risks were discussed. An informed consent was then obtained. Overlying skin is cleaned with sterile alcohol. Following this, 491 uCi Tc99m Tilmanocept was inject ed in the upper outer aspect of the left nipple intradermally. The patient tolerated the procedure well without any immediate complication. The patient was kept in the radiology department for short stay after the procedure and then taken to surgery for surgical p rocedure what is presumed intraoperative gamma probe will be used for sentinel lymph node detection. IMPRESSION: Left breast radiotracer injection for sentinel node localization as above.
--- NOTE | 2022-09-01 13:32 | P.NAPBC ---
NAPBC Queries - NAPBC Queries Was patient's case review presented at [facility] tumor board? If no, comment.: Yes Was patient's pathology reviewed at [facility]? If no, comment.: Yes Was breast conservation surgery offered? If no, comment.: Yes Was sentinel node biopsy offered? If no, comment.: Yes Was diagnosis confirmed by percutaneous core biopsy? If no, comment.: Yes Is patient mastectomy patient?: No Was a preop referral to reconstructive surgeon offered?: No Clinical Stage: stage I invasive ducal cancer
[2022-09-01] MEDS ORDERED: MIDAZOLAM 2 MG/2 ML VIAL ONE (14:10)
[2022-09-01] MEDS ORDERED: SUCCINYLCHOLINE CHLORIDE 200 MG/10 ML VIAL IV ONE (14:10)
[2022-09-01] MEDS ORDERED: fentaNYL (PF) 50 MCG/ML 2 ML AMP ONE (14:10)
[2022-09-01] MEDS ORDERED: ePHEDrine 50 MG/ML 1 ML VIAL ONE (14:10)
[2022-09-01] MEDS ORDERED: LIDOCAINE 2% INJ 20 MG/ML (2 ML VIAL) ONE (14:10)
[2022-09-01] MEDS ORDERED: HYDROmorphone (PF) 1 MG/ML ONE (14:10)
[2022-09-01] MEDS ORDERED: PROPOFOL 10 MG/ML 20 ML VIAL IV ONE (14:10)
[2022-09-01] MEDS ORDERED: KETOROLAC 15 MG/ML 1 ML VIAL ONE (14:10)
[2022-09-01] MEDS ORDERED: LACTATED RINGERS 1,000 ML IV ONE (15:22)
--- NOTE | 2022-09-01 15:47 | P.OP ---
Date of Procedure: 09/01/22 Preoperative Diagnosis: Invasive ductal carcinoma left breast Postoperative Diagnosis: Same Procedure(s) Performed: Needle localization lumpectomy left breast, sentinel node biopsy, onco-plastic tissue transfer 35 cm Anesthesia: PIERRE Surgeon: Tran Lopez Estimated Blood Loss (ml): 10 IV fluids (ml): 1,000 Pathology: other (Breast tissue, lymph node axilla) Condition: stable Disposition: same day Indications for Procedure: Invasive ductal carcinoma left breast Operative Findings: Dense breast tissue Description of Procedure: The patient was seen preoperatively in the radiology department where needle localization of the tumor in the left breast was performed as well as injection of radiotracer in the left periareolar region. The patient was then brought to the operative suite. Following induction of anesthesia the neoprobe was used to identify the radiotracer had traveled to the axilla. Following this the left breast and axilla were prepped and draped in a sterile fashion. The axilla was approached initially. Using the neoprobe for localization. Greatest radioactivity was identified. An incision was made at that site and the tissue was grasped. The tissue was resected and lymph node was identified with a 10 second count of 2801. The background 10 second count was 26. After we assured that hemostasis was attained the deep tissues were closed using 3-0 Vicryl sutu re. This was followed by closure of the skin with 4-0 Monocryl subcuticular suture. The area of the breast was approached. Using the needle as a guide incision was made and carried down to the shaft of the needle. Surrounding tissue was excised. The cavity was 5 x 2 cm to 10 cm. The specimen was painted for orientation. Titanium clips were placed. Posterior dissection was onto the pectoralis muscle. Anteriorly skin was taken. Radiograph of the specimen revealed that the lesion of concern and the clip had been removed. A superior pillar 5 x 3 cm was formed. Inferior pillar 5 x 2 cm was performed. The pillars were mobilized and closed using 3-0 Vicryl suture. The subcutaneous tissue was closed using 3-0 Vicryl suture. This was followed by closure of the skin with a 4-0 subcuticular suture. The patient tolerated the procedure in stable condition. All instrument and sponge counts were correct at the end of the case.
--- NOTE | 2022-09-01 15:49 | P.DS ---
Providers Attending physician: Tran Lopez Primary care physician: Rahel Cotton Plan - Discharge Summary Discharge Rx Participant: No New Discharge Prescriptions: New HYDROcodone/APAP 5-325MG [[place] 5] 1 - 2 each PO Q4H PRN #14 tab PRN Reason: Pain No Action Acetaminophen [Tylenol Extra Strength] 500 mg PO Q6H PRN PRN Reason: Pain Aspirin [[place] Aspirin EC] 81 mg PO DAILY Discharge Medication List Acetaminophen [Tylenol Extra Strength] 500 mg PO Q6H PRN 08/23/18 [History] Aspirin [[place] Aspirin EC] 81 mg PO DAILY 06/29/22 [History] HYDROcodone/APAP 5-325MG [[place] 5] 1 - 2 each PO Q4H PRN #14 tab 09/01/22 [Rx] Follow up Appointment(s)/Referral(s): Tran Lopez MD [STAFF PHYSICIAN] - 09/10/22 10:20 am Patient Instructions/Handouts: *Surgery [facility] - (Anesthesia) Discharge Instructions Outpatient Surgery Activity/Diet/Wound Care/Special Instructions: do not drive for 24 hours or if taking narcotic pain medication may shower after 48 hours wear bra at al times Discharge Disposition: HOME SELF-CARE
[2022-09-01 16:10] VITALS: TEMP 97.4
[2022-09-01] MEDS ORDERED: METOCLOPRAMIDE 5 MG/ML 2 ML VIAL IVP ONE (17:03)
[2022-09-01 17:52] VITALS: BP 145/74; PULSE 84; RESP 16
--- NOTE | 2022-09-07 14:22 | MM ---
Reason for Exam: Post Procedure Mammogram. Last screening mammogram was performed 3 month(s) ago. Patient History: Menarche at age 11. First Full-Term at age 22. Postmenopausal. Patient has history of breast feeding. Breast cancer, left, age 77. Estrogen for 1 year from age 51 until age 52. Progesterone for 1 year from age 51 until age 52. 07/08/2022, Malignant US biopsy breast VAD LT on the left side. Cyst Aspiration on the Left side. 02/04/2000, Benign Ultrasound-Guided Cyst Aspiration on the left side. Maternal aunt had breast cancer, age 72. Prior Study Comparison: 06/17/2022 Bilateral MG 3D screening mammo w/cad, [facility]. 06/26/2022 Left US breast limited LT, [facility]. 06/26/2022 Left MG 3D work up w/cad LT, [facility]. 07/08/2022 Left MG diagnostic mammo LT wo CAD., [facility]. Tissue Density: Left: The breast tissue is heterogeneously dense. This may lower the sensitivity of mammography. Pathology Description: Location: 7 o'clock. Needle Type: 7 cm Kokathy The procedure of needle localization with wire placement and than surgical excision was explained to the patient. Benefits, alternatives, and risks were discussed. An informed consent was then obtained. The shortest pathway for procedure was chosen. Shortest pathway was inferior approach. The overlying skin was prepped and draped in usual sterile fashion. Lidocaine was used as anesthetic into the skin and subcutaneous tissue up to the level of area of concern. A 7 cm needle was used. It was placed via a tear approach under ultrasound guidance. Subsequent 90 degrees mammogram show the needle to be in satisfactory position relative to the targeted area (clip). At this point, wire was placed and the needle was withdrawn. The wire was fixed to patient's skin. Images were marked and discussed with surgeon. The patient tolerated the procedure well without any immediate complication. The patient was kept in the radiology department for short stay after the procedure and then taken to surgery for surgical excision. Targeted clip and wire are identified in specimen mammogram. The patient was kept in hospital for short stay after the procedure and then discharged home in stable condition. Impression: Successful, uncomplicated needle localization with wire placement and surgical excision of left breast mass with biopsy clip, full pathology results to follow. Pathology Results: Result: Malignant, Invasive lobular carcinoma. A. LEFT SENTINEL LYMPH NODE: Lymph node negative for metastasis. CK7 and DEACON immunoperoxidase stains are confirmatory (controls appropriate). B. LEFT AXILLARY CONTENTS: Three lymph nodes negative for metastasis. C. LEFT BREAST NEW ANTERIOR MARGIN, EXCISION: Benign skin and subcutaneous tissue. D. LEFT BREAST, LUMPECTOMY: Invasive lobular carcinoma and lobular carcinoma in situ (LCIS), margins negative for invasive malignancy. Background fibrocystic changes and previous biopsy site. See Surgical Pathology Cancer Case Summary and Comment. Overall Assessment: Malignant Assessment: MG diagnostic mammo LT wo CAD. - Left: Known biopsy proven malignancy, BI-RAD 6. Management: Oncologic Management of the left breast. Electronically signed and approved by: Binu Fernandez D.O.
== END 2022-09-01 18:35 | disposition home or self-care (01) ==
LOC: OR 09:46
PROVIDERS: ATTEND Surgery
DX: C50.312 Malignant neoplasm of lower-inner quadrant of left female breast (principal)
CPT/HCPCS: 19301; 85025; 88342; 88307; 88341; 77065; 76098; 19285; 38792; C1819; A9520; J2250; J0330; J2765; J0690; J2405; J3010; J1170; J1885; J2001 ×2; J2704; J1644

== ENCOUNTER → 2022-09-10 | Outpatient (CLI) | payer MEDICARE, BC ==
--- NOTE | 2022-09-10 10:18 | P.PN ---
Progress Note - Text Progress Note Date: 09/10/22 Felisha is a 77-year-old white female status post left breast lumpectomy and sentinel node biopsy on . She had 4 lymph nodes removed all were negative, she had a 1.1 cm tumor and all margins were negative. This was an invasive lobular carcinoma. She tolerated the procedure without difficulty. Physical Exam: lungs: clear heart RRR incision breast and axilla cleaned and dried Impression: Patient doing well postop Plan: Appropriate with medical oncology Appointment radiation oncology Follow-up in 4 months Cc: Dr. Cotton
[2022-09-10 10:21] VITALS: BP 169/97; PULSE 80; RESP 17; TEMP 98.4
== END ==
LOC: WWCWWP 10:04
PROVIDERS: ATTEND Surgery
DX: Z85.3 Personal history of malignant neoplasm of breast (principal); Z88.5 Allergy status to narcotic agent; Z88.6 Allergy status to analgesic agent; Z88.8 Allergy status to other drugs, medicaments and biological substances

== ENCOUNTER → 2022-10-07 | Outpatient (CLI) | payer MEDICARE, BC ==
[2022-10-07 12:24] VITALS: BP 169/83; PULSE 76; RESP 18; TEMP 97.7
--- NOTE | 2022-10-07 12:57 | P.PN ---
Progress Note - Text Progress Note Date: 10/07/22 Felisha is a 77-year-old white female status post left breast lumpectomy and sentinel node biopsy on . She had 4 lymph nodes removed all were negative, she had a 1.1 cm tumor and all margins were negative. This was an invasive lobular carcinoma. She tolerated the procedure without difficulty. She has an appointment with radiation oncology next week. She has had an appointment with medical oncology and is evidently waiting for the Oncotype results. Her oncotype was sent on 10-02-22 and they are awaiting results. Exam: lungs: clear heart RRR incision breast and axilla clean and dry Impression: Patient doing well postop Plan: Appropriate with medical oncology Appointment radiation oncology Follow-up in 4 months CC: Dr. Wilson, Dr. Laci Andrade
== END ==
LOC: WWCWWP 12:09
PROVIDERS: ATTEND Surgery
DX: Z85.3 Personal history of malignant neoplasm of breast (principal); Z88.5 Allergy status to narcotic agent; Z88.6 Allergy status to analgesic agent; Z88.8 Allergy status to other drugs, medicaments and biological substances

== ENCOUNTER → 2023-01-13 | Outpatient (CLI) | payer MEDICARE, BC ==
[2023-01-13 10:07] VITALS: BP 166/86; PULSE 80; RESP 13; TEMP 98.6
--- NOTE | 2023-01-13 10:41 | P.PN ---
Subjective Progress Note Date: 01/13/23 Felisha is a 77-year-old white female seen in consultation for Dr. Cotton regarding the stage IA left breast invasive ductal carcinoma. She underwent a bilateral screening mammogram on [id number]. Sibilated lesion in the lower inner aspect of the left breast. This led to a left breast diagnostic mammogram which was performed by 1922 as well as in ultrasound 06-26-22. On ultrasound the patient was noted to have a lesion in the left breast which was less than 1 cm in size and core biopsy was recommended. Core biopsy was performed and which revealed invasive low-grade ductal carcinoma grade [address] low positive and HER-2/tay negative. KI index is 5-10%. The patient did not feel any lumps masses or nodules of concern prior to her procedure. She had a mole removed form her right breast at the age of 14. She has not had any recent trauma or infection of the breast. She tolerated the procedure without difficulty, but did develop some bruising. The patient on 09-01-22 underwent a left breast lumpectomy and SNB. T 1.1cm nodes (-). Stage 1A [id number]+Her2- NOte radiation oncology reviewed 12-16-22 She completed radiation therapy on 11-10-22 Note medical oncology reviewed 12-18-22 on anestrazole; also on Fosamax She is not complaining of any lumps masses or nodules in either breast. 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 Social History: nicotine: none alcohol: stopped in the ; wine occasional drugs: Marijuana in the not now - Constitutional Constitutional: Denies chills, Denies fever - EENT Eyes: denies blurred vision, denies pain Ears: deny: decreased hearing, tinnitus Ears, nose, mouth and throat: Reports sore throat, Denies headache - Breasts Breasts: bilateral: as per HPI - Cardiovascular Cardiovascular: Denies chest pain, Denies shortness of breath - Respiratory Respiratory: Denies cough - Gastrointestinal Comment: history of PUD Gastrointestinal: Denies abdominal pain, Denies diarrhea, Denies nausea, Denies vomiting - Genitourinary (Female) Genitourinary: Denies dysuria, Denies hematuria - Menstruation Menstruation: Reports postmenopausal - Musculoskeletal Musculoskeletal: Reports as per HPI - Integumentary Integumentary: Denies pruritus, Denies rash - Neurological Neurological: Denies numbness, Denies weakness - Psychiatric Psychiatric: Denies anxiety, Denies depression - Endocrine Endocrine: Reports weight change - Hematologic/Lymphatic Comment: DVT right leg superficial - Allergic/Immunologic Allergic/Immunologic: Reports as per HPI Past Medical History Past Medical History: Osteoarthritis (OA) Additional Past Medical History / Comment(s): 05/06/15 PT admitted to floor s/p total R hip arthroplasty. Other HX OF: BLEEDING ULCER, ANEMIA, hypoglycemia. 2008 Left hip replacement History of Any Multi-Drug Resistant Organisms: None Reported Past Surgical History: Joint Replacement, Tonsillectomy, Tubal Ligation Additional Past Surgical History / Comment(s): 05/06/15 Total R hip arthroplasty. Other SX HX: CONE BX, EPIDURAL INJECTIONS, LEFT HIP REPLACEMENT Past Anesthesia/Blood Transfusion Reactions: Postoperative Nausea & Vomiting (PONV) Additional Past Anesthesia/Blood Transfusion Reaction / Comment(s): Pt has recieved blood in the past without reaction. Smoking Status: Never smoker - Past Family History Mother Family Medical History: Cancer Additional Family Medical History / Comment(s): BLADDER, leukemia, CABG and valve sugeries. Father Family Medical History: Cancer Additional Family Medical History / Comment(s): THROAT, brain. Father at age 54yrs. Brother(s) Family Medical History: Cancer Additional Family Medical History / Comment(s): skin Medications and Allergies Home Medications Medication Instructions Recorded Confirmed Type Acetaminophen [Tylenol Extra 500 mg PO Q6H PRN 08/23/18 07/13/22 History Strength] Aspirin [[place] Aspirin EC] 81 mg PO DAILY 06/29/22 07/13/22 History Turmeric Root Extract [Turmeric 500 mg PO DAILY 06/29/22 07/13/22 History Curcumin] Allergies Allergy/AdvReac Type Severity Reaction Status Date / Time hydrocortisone Allergy Rash/Hives Verified 07/13/22 13:02 NSAIDS (Non-Steroidal AdvReac Severe GI Bleeding Verified 07/13/22 13:02 Anti-Inflamma Mqpnhbe-RZO-XhF Reductase AdvReac Severe Myalgia Verified 07/13/22 13:02 Inhibitor [Tddxpfi-Afl-Ubo Reductase Inhibitor] phenylenediamine Allergy Rash/Hives Uncoded 07/13/22 13:02 Objective - Vital Signs Vital signs: Vital Signs Temp 98.6 F 01/13/23 10:03 Pulse 80 01/13/23 10:03 Resp 13 01/13/23 10:03 BP 166/86 01/13/23 10:03 Pulse Ox 96 01/13/23 10:03 FiO2 - Constitutional General appearance: Present: cooperative - EENT Eyes: Present: EOMI ENT: Present: hearing grossly normal - Neck Neck: Present: normal ROM - Respiratory Respiratory: bilateral: CTA - Cardiovascular Rhythm: regular Heart sounds: normal: S1, S2 - Gastrointestinal General gastrointestinal: Present: soft - Integumentary Integumentary: Present: normal turgor - Musculoskeletal Musculoskeletal: Present: gait normal - Psychiatric Psychiatric: Present: A&O x's 3, appropriate affect, intact judgment & insight - Additional findings Additional findings: Breast Exam: BRA: 36B Inspection: bilateral grade 2 ptosis; ecchymosis lower inner left breast palpation: right breast: Multiple positional exam fibrocystic changes no dominant masses or nodules of concern Right axilla: No adenopathy of concern Left breast: Multiple positional exam fibrocystic changes, post op and post radiation changes Left axilla: No adenopathy of concern Assessment and Plan Assessment: Impression: hypoglycemia allergic to statins arthritis Stage IA invasive ductal carcinoma left breast Plan: bilateral mammogram in May followup after mammogram continue follow up with radiation and medical oncology CC: Dr. Cotton
== END ==
LOC: WWCWWP 09:37
PROVIDERS: ATTEND Surgery
DX: R92.8 Other abnormal and inconclusive findings on diagnostic imaging of breast (principal); D05.12 Intraductal carcinoma in situ of left breast; M19.90 Unspecified osteoarthritis, unspecified site; E16.2 Hypoglycemia, unspecified; D64.9 Anemia, unspecified; Z17.0 Estrogen receptor positive status [ER+]; Z98.890 Other specified postprocedural states; Z80.3 Family history of malignant neoplasm of breast; Z88.8 Allergy status to other drugs, medicaments and biological substances

== ENCOUNTER → 2023-06-18 | Outpatient (CLI) | payer MEDICARE, BC ==
--- NOTE | 2023-06-18 11:14 | MM ---
Reason for Exam: Additional evaluation requested from prior study. Last screening mammogram was performed 12 month(s) ago. Patient History: Menarche at age 11. First Full-Term at age 22. Postmenopausal. Patient has history of breast feeding. Breast cancer, left, age 77. Breast cancer, left, age 77. Previous chest radiation therapy at age 78. Estrogen for 1 year from age 51 until age 52. Progesterone for 1 year from age 51 until age 52. 09/01/2022, Lumpectomy on the Left side. 09/01/2022, Malignant US breast localization LT on the left side. 07/08/2022, Malignant US biopsy breast VAD LT on the left side. Cyst Aspiration on the Left side. 02/04/2000, Benign Ultrasound-Guided Cyst Aspiration on the left side. Maternal aunt had breast cancer, age 72. Prior Study Comparison: 08/04/2017 Bilateral Screening Mammogram, [facility]. 09/07/2018 Bilateral Screening Mammogram, [facility]. 01/23/2020 Bilateral Screening Mammogram, [facility]. 05/02/2021 Bilateral Screening Mammogram, [facility]. 06/17/2022 Bilateral MG 3D screening mammo w/cad, [facility]. 06/26/2022 Left MG 3D work up w/cad LT, [facility]. Tissue Density: The breast tissue is heterogeneously dense. This may lower the sensitivity of mammography. Findings: Analyzed By CAD. Postsurgical and posttreatment changes left breast. No significant change on the right or suspicious microcalcifications on the left. Overall Assessment: Probably benign, BI-RAD 3 Management: Diagnostic Mammogram of the left breast in 6 months. To assess for any evolving posttreatment changes. Results were given to the patient verbally at the time of exam. Patient should continue monthly self-breast exams. A clinical breast exam by your physician is recommended on an annual basis. This exam should not preclude additional follow-up of suspicious palpable abnormalities. Electronically signed and approved by: Bob Wu M.D. Radiologist
== END | disposition home or self-care (01) ==
LOC: RADMAMWWP 10:39
PROVIDERS: ATTEND Surgery
DX: R92.333 Mammographic heterogeneous density, bilateral breasts (principal); Z85.3 Personal history of malignant neoplasm of breast; Z80.3 Family history of malignant neoplasm of breast; Z78.0 Asymptomatic menopausal state
CPT/HCPCS: 77066; G0279; 77062

== ENCOUNTER → 2023-06-25 | Outpatient (CLI) | payer MEDICARE, BC ==
[2023-06-25 11:08] VITALS: BP 185/84; PULSE 87; RESP 17; TEMP 98.1
--- NOTE | 2023-06-25 11:11 | P.PN ---
Subjective Progress Note Date: 06/25/23 06-25-23 Felisha is a 77-year-old white female seen in consultation for Dr. Yury العليarding the stage IA left breast invasive ductal carcinoma. She underwent a bilateral screening mammogram on [id number]. Sibilated lesion in the lower inner aspect of the left breast. This led to a left breast diagnostic mammogram which was performed by 1922 as well as in ultrasound 06-26-22. On ultrasound the patient was noted to have a lesion in the left breast which was less than 1 cm in size and core biopsy was recommended. Core biopsy was performed and which revealed invasive low-grade ductal carcinoma grade 1 ER positive TN low positive and HER-2/tay negative. KI index is 5-10%. The patient did not feel any lumps masses or nodules of concern prior to her procedure. She had a mole removed form her right breast at the age of 14. She has not had any recent trauma or infection of the breast. She tolerated the procedure without difficulty, but did develop some bruising. The patient on 09-01-22 underwent a left breast lumpectomy and SNB. T 1.1cm nodes (-). Stage 1A [id number]- She completed radiation therapy on 11-10-22 Note medical oncology reviewed 03-11-23 on anestrazole; also on Fosamax She is not complaining of any lumps masses or nodules in either breast. Bilateral mammogram on 06-18-23 BIRAD 3 repeat left breast mammogram in 6 months, she is not complaining of any new lumps masses or nodules of concern in either breast CAffiene: up to 6 cups/day Nicotine: none; parents smokers, son lives with her and he is a smoker Chocolate: weekly BCP: 18-20 Family History: father: throat cancer mother: bladder cancer maternal aunt: breast cancer Hormonal History: menarche: 11 G6G3M3 breast fed: yes, age at first : 23 menopause: 51 Surgical History: right leg keloid bilateral hip replacement right wrist fracture left elbow mole removal tubaligation tonsilectomy left breast lumpectomy adn SNB Medical History: hypoglycemia allergic to statins arthritis Social History: nicotine: none alcohol: stopped in the ; wine occasional drugs: Marijuana in the not now - Constitutional Constitutional: Denies chills, Denies fever - EENT Eyes: denies blurred vision, denies pain Ears: deny: decreased hearing, tinnitus Ears, nose, mouth and throat: Reports sore throat, Denies headache - Breasts Breasts: bilateral: as per HPI - Cardiovascular Cardiovascular: Denies chest pain, Denies shortness of breath - Respiratory Respiratory: Denies cough - Gastrointestinal Comment: history of PUD Gastrointestinal: Denies abdominal pain, Denies diarrhea, Denies nausea, Denies vomiting - Genitourinary (Female) Genitourinary: Denies dysuria, Denies hematuria - Menstruation Menstruation: Reports postmenopausal - Musculoskeletal Musculoskeletal: Reports as per HPI - Integumentary Integumentary: Denies pruritus, Denies rash - Neurological Neurological: Denies numbness, Denies weakness - Psychiatric Psychiatric: Denies anxiety, Denies depression - Endocrine Endocrine: Reports weight change - Hematologic/Lymphatic Comment: DVT right leg superficial - Allergic/Immunologic Allergic/Immunologic: Reports as per HPI Past Medical History Past Medical History: Osteoarthritis (OA) Additional Past Medical History / Comment(s): 05/06/15 PT admitted to floor s/p total R hip arthroplasty. Other HX OF: BLEEDING ULCER, ANEMIA, hypoglycemia. 2009 Left hip replacement History of Any Multi-Drug Resistant Organisms: None Reported Past Surgical History: Joint Replacement, Tonsillectomy, Tubal Ligation Additional Past Surgical History / Comment(s): 05/06/15 Total R hip arthroplasty. Other SX HX: CONE BX, EPIDURAL INJECTIONS, LEFT HIP REPLACEMENT Past Anesthesia/Blood Transfusion Reactions: Postoperative Nausea & Vomiting (PONV) Additional Past Anesthesia/Blood Transfusion Reaction / Comment(s): Pt has recieved blood in the past without reaction. Smoking Status: Never smoker - Past Family History Mother Family Medical History: Cancer Additional Family Medical History / Comment(s): BLADDER, leukemia, CABG and valve sugeries. Father Family Medical History: Cancer Additional Family Medical History / Comment(s): THROAT, brain. Father at age 54yrs. Brother(s) Family Medical History: Cancer Additional Family Medical History / Comment(s): skin Medications and Allergies Home Medications Medication Instructions Recorded Confirmed Type Acetaminophen [Tylenol Extra 500 mg PO Q6H PRN 08/23/18 07/13/22 History Strength] Aspirin [[place] Aspirin EC] 81 mg PO DAILY 06/29/22 07/13/22 History Turmeric Root Extract [Turmeric 500 mg PO DAILY 06/29/22 07/13/22 History Curcumin] Allergies Allergy/AdvReac Type Severity Reaction Status Date / Time hydrocortisone Allergy Rash/Hives Verified 07/13/22 13:02 NSAIDS (Non-Steroidal AdvReac Severe GI Bleeding Verified 07/13/22 13:02 Anti-Inflamma Ncchvqb-RUJ-UuC Reductase AdvReac Severe Myalgia Verified 07/13/22 13:02 Inhibitor [Lqqywhh-Qgo-Lfu Reductase Inhibitor] phenylenediamine Allergy Rash/Hives Uncoded 07/13/22 13:02 Objective - Constitutional General appearance: Present: cooperative - EENT Eyes: Present: EOMI - Neck Neck: Present: normal ROM - Respiratory Respiratory: bilateral: CTA - Cardiovascular Rhythm: regular Heart sounds: normal: S1, S2 - Integumentary Integumentary: Present: normal turgor - Musculoskeletal Musculoskeletal: Present: gait normal - Psychiatric Psychiatric: Present: A&O x's 3, appropriate affect, intact judgment & insight - Additional findings Additional findings: Breast Exam: BRA: 36B Inspection: bilateral grade 2 ptosis; palpation: right breast: Multi-positional exam fibrocystic changes no dominant masses or nodules of concern Right axilla: No adenopathy of concern Left breast: Multi-positional exam fibrocystic changes, post op and post radiation changes Left axilla: No adenopathy of concern Assessment and Plan Assessment: Impression: hypoglycemia allergic to statins arthritis Stage IA invasive ductal carcinoma left breast bilateral mammogram on 06-18-23 BIRAD 3 repeat left in 6 months Plan: repeat left breast mammogram in 6 months with appointment at that time, bilateral mammogram in 1 year followup after mammogram continue follow up with radiation and medical oncology continue anastrozole and Fosamax CC: Dr. Cotton
== END ==
LOC: WWCWWP 09:57
PROVIDERS: ATTEND Surgery
DX: C50.912 Malignant neoplasm of unspecified site of left female breast (principal); M19.90 Unspecified osteoarthritis, unspecified site; E16.2 Hypoglycemia, unspecified; Z98.890 Other specified postprocedural states; Z88.5 Allergy status to narcotic agent; Z91.041 Radiographic dye allergy status; Z17.0 Estrogen receptor positive status [ER+]; Z80.3 Family history of malignant neoplasm of breast; Z88.8 Allergy status to other drugs, medicaments and biological substances; Z92.3 Personal history of irradiation; Z96.643 Presence of artificial hip joint, bilateral

== ENCOUNTER → 2023-08-18 | Outpatient (CLI) | payer MEDICARE, BC ==
--- NOTE | 2023-08-19 12:31 | US ---
EXAMINATION TYPE: US thyroid st tissue head/neck DATE OF EXAM: 08/18/2023 COMPARISON: NONE CLINICAL INDICATION: Female, 78 years old with history of C50.312 BREAST CANCER; Patient hx of breast cancer. Left neck pain GLAND SIZE: Right Lobe: 4.9 x 2.1 x 1.5 cm Overall Parenchyma: heterogenous Left Lobe: 4.1 x 1.2 x 1.6 cm Overall Parenchyma: heterogenous Isthmus Thickness: 0.4 cm NODULES RIGHT: # of nodules measured on right: 2 1. 0.6 X 0.4 x 0.5 cm, upper mid, solid or almost completely solid, hypoechoic TR 4 nodule, which is wider than tall, with smooth margins, without echogenic foci. 2. 0.8 X 0.4 x 0.8 cm, mid mid, solid or almost completely solid, hypoechoic TR 4 nodule, which is wider than tall, with smooth margins, without echogenic foci. LEFT: # of nodules measured on left: 2 1. 0.7 X 0.4 x 0.6 cm, upper mid, solid or almost completely solid, hypoechoic TR 4 nodule, which i s wider than tall, with smooth margins, without echogenic foci. 2. 0.5 X 0.3 x 0.5 cm, lower mid, solid or almost completely solid, isoechoic TR 3 nodule, which i s wider than tall, with ill-defined margins, without echogenic foci. ISTHMUS: # of nodules measured in the isthmus: 0 Final Inspector [employer] notes: Bilateral neck scanned. Multiple prominent but nonenlarged lymph nodes seen bilate rally. Largest seen on the right side measuring 1.5 x 0.4 x 1.1cm with the cortex measuring 0.4cm. IMPRESSION: 1. A couple nodules on either side are either TR3 or TR4 nodules. The largest is a TR4 nodule that me asures 8 mm. 2. Prominent but nonenlarged lymph nodes in both sides of the neck likely reactive/post inflammatory. These can be followed clinically. 2017 ACR TI-RADS LEVEL: TR-RADS 4 - Moderately Suspicious: Follow if > 1 cm, FNA if > 1.5 cm *Highest TI-RADS level nodule reported
== END | disposition home or self-care (01) ==
LOC: RADUSWWP 15:57
PROVIDERS: ATTEND Internal Medicine
DX: C50.312 Malignant neoplasm of lower-inner quadrant of left female breast (principal); E04.1 Nontoxic single thyroid nodule
CPT/HCPCS: 76536

== ENCOUNTER 2023-09-03 11:23 | Day surgery (SDC) | payer MEDICARE, BC ==
[2023-09-02 09:26] VITALS: BMI 26.5
[2023-09-03] MEDS: LACTATED RINGERS 1,000 ML IV SCH (12:38)
[2023-09-03 12:55] LABS: Glucose,Whole Blood 93 mg/dL (70-110)
[2023-09-03 13:09] VITALS: TEMP 98.5
[2023-09-03] MEDS ORDERED: PROPOFOL 10 MG/ML 20 ML VIAL IV ONE (13:38)
[2023-09-03] MEDS ORDERED: LIDOCAINE 1% INJ 10MG/ML (20 ML MDV) ONE (13:38)
--- NOTE | 2023-09-03 14:03 | P.PCN ---
Date of Procedure: 09/03/23 Procedure(s) Performed: BRIEF HISTORY: Patient is a 78-year-old pleasant white female scheduled for an elective colonoscopy as a part of evaluation of history of colon polyps PROCEDURE PERFORMED: Colonoscopy. PREOPERATIVE DIAGNOSIS: History of colon polyps. IV sedation per Anesthesia. PROCEDURE: After informed consent was obtained, the patient, was brought into the endoscopy unit. IV sedation was administered by Anesthesia under continuous monitoring. Digital rectal examination was normal. Initially the Olympus CF-160 flexible video colonoscope was then inserted in the rectum, gradually advanced into the cecum without any difficulty. Careful examination was performed as the scope was gradually being withdrawn. Ileocecal valve and the appendiceal orifice were visualized and appeared normal. Prep was excellent. Mucosa of the cecum, ascending colon, transverse colon, descending colon, sigmoid colon, and rectum appeared normal. Extensive left-sided diverticulosis Retroflexion was performed in the rectum and no lesions were seen. The patient tolerated the procedure well. IMPRESSION: Normal-appearing colon from rectum to cecum with no evidence of colorectal neoplasia Extensive left-sided diverticulosis . RECOMMENDATIONS: Findings of this examination were discussed with the patient as well as a family.. She was advised to be on a high-fiber diet and take fiber supplements a regular basis.
[2023-09-03 14:55] VITALS: BP 158/88; PULSE 74; RESP 15
== END 2023-09-03 14:41 | disposition home or self-care (01) ==
LOC: ORWHC2ENDO 11:23
PROVIDERS: ATTEND Internal Medicine Gastroenterology
DX: Z12.11 Encounter for screening for malignant neoplasm of colon (principal); K57.30 Diverticulosis of large intestine without perforation or abscess without bleeding; Z86.010 Personal history of colon polyps; Z88.6 Allergy status to analgesic agent; Z79.899 Other long term (current) drug therapy; Z88.5 Allergy status to narcotic agent; Z96.643 Presence of artificial hip joint, bilateral; Z90.89 Acquired absence of other organs; Z98.890 Other specified postprocedural states
CPT/HCPCS: J2001; J2704; G0105

== ENCOUNTER → 2023-12-13 | Outpatient (CLI) | payer MEDICARE, BC ==
--- NOTE | 2023-12-13 13:29 | MM ---
Reason for Exam: Follow-up at short interval from prior study. Last screening mammogram was performed 6 month(s) ago. Patient History: Menarche at age 11. First Full-Term at age 22. Postmenopausal. Patient has history of breast feeding. Breast cancer, left, age 77. Breast cancer, left, age 77. Previous chest radiation therapy at age 78. Estrogen for 1 year from age 51 until age 52. Progesterone for 1 year from age 51 until age 52. 09/01/2022, Lumpectomy on the Left side. 09/01/2022, Malignant US breast localization LT on the left side. 07/08/2022, Malignant US biopsy breast VAD LT on the left side. Cyst Aspiration on the Left side. 02/04/2000, Benign Ultrasound-Guided Cyst Aspiration on the left side. Maternal aunt had breast cancer, age 72. Prior Study Comparison: 07/08/2022 Left MG diagnostic mammo LT wo CAD., [facility]. 09/01/2022 Left MG diagnostic mammo LT wo CAD., [facility]. 06/18/2023 Bilateral MG 3D diag mammo w/cad [facility], [facility]. Tissue Density: Left: The breasts are heterogeneously dense, which may obscure small masses. Findings: Analyzed By CAD. Postbiopsy changes left breast. No evidence for new mass or distortion. No suspicious microcalcifications. Overall Assessment: Benign, BI-RAD 2 Management: Diagnostic Mammogram of both breasts in 6 months. . Results were given to the patient verbally at the time of exam. Patient should continue monthly self-breast exams. A clinical breast exam by your physician is recommended on an annual basis. This exam should not preclude additional follow-up of suspicious palpable abnormalities. Note on Vero scores and lifetime risk: 1. A Vero score greater than 3% is considered moderate risk. If this is the case, consider specialist referral to assess eligibility for a risk reducing agent. 2. If overall lifetime risk for the development of breast cancer is 20% or higher, the patient may qualify for future screening with alternating mammogram and breast MRI. Electronically signed and approved by: Daniel Wang M.D. Radiologis
== END | disposition home or self-care (01) ==
LOC: RADMAMWWP 13:04
PROVIDERS: ATTEND Surgery
DX: Z12.31 Encounter for screening mammogram for malignant neoplasm of breast (principal); Z85.3 Personal history of malignant neoplasm of breast; Z78.0 Asymptomatic menopausal state; Z80.3 Family history of malignant neoplasm of breast; R92.332 Mammographic heterogeneous density, left breast
CPT/HCPCS: 77065; G0279; 77061

== ENCOUNTER → 2023-12-17 | Outpatient (CLI) | payer MEDICARE, BC ==
[2023-12-17 14:18] VITALS: BP 184/90; PULSE 90; RESP 16; TEMP 98.2
--- NOTE | 2023-12-17 14:56 | P.PN ---
Subjective Progress Note Date: 12/17/23 Principal diagnosis: left breast stage IA invasive ductal cancer 202212-17-23 Felisha is a 78-year-old white female seen in consultation for Dr. Cotton regarding the stage IA left breast invasive ductal carcinoma. She underwent a bilateral screening mammogram on [id number]. Sibilated lesion in the lower inner aspect of the left breast. This led to a left breast diagnostic mammogram which was performed by 1922 as well as in ultrasound 06-26-22. On ultrasound the patient was noted to have a lesion in the left breast which was less than 1 cm in size and core biopsy was recommended. Core biopsy was performed and which revealed invasive low-grade ductal carcinoma grade 1 ER positive GA low positive and HER-2/tay negative. KI index is 5-10%. The patient did not feel any lumps masses or nodules of concern prior to her procedure. She had a mole removed frrom her right breast at the age of 14. She has not had any recent trauma or infection of the breast. She tolerated the procedure without difficulty, but did develop some bruising. The patient on 09-01-22 underwent a left breast lumpectomy and SNB. T 1.1cm nodes (-). Stage 1A [id number]+Her2- She completed radiation therapy on 11-10-22 Note medical oncology reviewed 08-05-23 on anestrazole; also on Fosamax She is not complaining of any lumps masses or nodules in either breast, she is complaining pain of left shoulder discomfort; this had started approximately 6 months ago however it is getting worse it is worse with movement and appears to be in the supraclavicular area Bilateral mammogram on 06-18-23 BIRAD 3 repeat left breast mammogram in 6 months, she is not complaining of any new lumps masses or nodules of concern in either breast; repeat left bresat mammogram on 12-13-23 BIRAD 2 CAffiene: up to 6 cups/day Nicotine: none; parents smokers, son lives with her and he is a smoker Chocolate: weekly BCP: 18-20 Family History: father: throat cancer mother: bladder cancer maternal aunt: breast cancer Hormonal History: menarche: 11 G6G3M3 breast fed: yes, age at first : 23 menopause: 51 Surgical History: right leg keloid bilateral hip replacement right wrist fracture left elbow mole removal tubaligation tonsilectomy left breast lumpectomy and SNB Medical History: hypoglycemia allergic to statins arthritis Social History: nicotine: none alcohol: stopped in the s; wine occasional drugs: Marijuana in the 1970s not now - Constitutional Constitutional: Denies chills, Denies fever - EENT Eyes: denies blurred vision, denies pain Ears: deny: decreased hearing, tinnitus Ears, nose, mouth and throat: Reports sore throat, Denies headache - Breasts Breasts: bilateral: as per HPI - Cardiovascular Cardiovascular: Denies chest pain, Denies shortness of breath - Respiratory Respiratory: Denies cough - Gastrointestinal Comment: history of PUD Gastrointestinal: Denies abdominal pain, Denies diarrhea, Denies nausea, Denies vomiting - Genitourinary (Female) Genitourinary: Denies dysuria, Denies hematuria - Menstruation Menstruation: Reports postmenopausal - Musculoskeletal Musculoskeletal: Reports as per HPI - Integumentary Integumentary: Denies pruritus, Denies rash - Neurological Neurological: Denies numbness, Denies weakness - Psychiatric Psychiatric: Denies anxiety, Denies depression - Endocrine Endocrine: Reports weight change - Hematologic/Lymphatic Comment: DVT right leg superficial - Allergic/Immunologic Allergic/Immunologic: Reports as per HPI Past Medical History Past Medical History: Osteoarthritis (OA) Additional Past Medical History / Comment(s): 05/06/15 PT admitted to floor s/p total R hip arthroplasty. Other HX OF: BLEEDING ULCER, ANEMIA, hypoglycemia. 2009 Left hip replacement History of Any Multi-Drug Resistant Organisms: None Reported Past Surgical History: Joint Replacement, Tonsillectomy, Tubal Ligation Additional Past Surgical History / Comment(s): 05/06/15 Total R hip arthroplasty. Other SX HX: CONE BX, EPIDURAL INJECTIONS, LEFT HIP REPLACEMENT Past Anesthesia/Blood Transfusion Reactions: Postoperative Nausea & Vomiting (PONV) Additional Past Anesthesia/Blood Transfusion Reaction / Comment(s): Pt has recieved blood in the past without reaction. Smoking Status: Never smoker - Past Family History Mother Family Medical History: Cancer Additional Family Medical History / Comment(s): BLADDER, leukemia, CABG and valve sugeries. Father Family Medical History: Cancer Additional Family Medical History / Comment(s): THROAT, brain. Father at age 54yrs. Brother(s) Family Medical History: Cancer Additional Family Medical History / Comment(s): skin Medications and Allergies Home Medications Medication Instructions Recorded Confirmed Type Acetaminophen [Tylenol Extra 500 mg PO Q6H PRN 08/23/18 07/13/22 History Strength] Aspirin [[place] Aspirin EC] 81 mg PO DAILY 06/29/22 07/13/22 History Turmeric Root Extract [Turmeric 500 mg PO DAILY 06/29/22 07/13/22 History Curcumin] Allergies Allergy/AdvReac Type Severity Reaction Status Date / Time hydrocortisone Allergy Rash/Hives Verified 07/13/22 13:02 NSAIDS (Non-Steroidal AdvReac Severe GI Bleeding Verified 07/13/22 13:02 Anti-Inflamma Ljxfwwc-TMU-YuI Reductase AdvReac Severe Myalgia Verified 07/13/22 13:02 Inhibitor [Ibwfyvf-Vlo-Hon Reductase Inhibitor] phenylenediamine Allergy Rash/Hives Uncoded 07/13/22 13:02 Objective - Vital Signs Vital signs: Vital Signs Temp 98.2 F 12/17/23 14:13 Pulse 90 12/17/23 14:13 Resp 16 12/17/23 14:13 BP 184/90 12/17/23 14:13 Pulse Ox 98 12/17/23 14:13 FiO2 Intake & Output 12/16/23 12/17/23 12/17/23 18:59 06:59 18:59 Weight 68.039 kg - Constitutional General appearance: Present: cooperative - EENT Eyes: Present: EOMI ENT: Present: hearing grossly normal - Neck Neck: Present: normal ROM - Respiratory Respiratory: bilateral: CTA - Cardiovascular Rhythm: regular Heart sounds: normal: S1, S2 - Integumentary Integumentary: Present: normal turgor - Musculoskeletal Musculoskeletal: Present: gait normal - Psychiatric Psychiatric: Present: A&O x's 3, appropriate affect, intact judgment & insight - Additional findings Additional findings: Breast Exam: BRA: 36B Inspection: bilateral grade 2 ptosis; palpation: right breast: Multi-positional exam fibrocystic changes no dominant masses or nodules of concern Right axilla: No adenopathy of concern Left breast: Multi-positional exam fibrocystic changes, post op and post radiation changes Left axilla: No adenopathy of concern In the left supraclavicular area which is tender to palpation, the patient has some decreased mobility to the left shoulder with movement over her head Assessment and Plan Assessment: Impression: hypoglycemia allergic to statins arthritis Stage IA invasive ductal carcinoma left breast bilateral mammogram on 06-18-23 BIRAD 3 repeat left in 6 months done 12-13-23 BIRAD 2 left shoulder/ neck pain Plan: repeat bilateral mammogram in May with examination at that time C-spine/left shoulder x-rays follow-up after these are done We have discussed physical therapy and at this time she would like to avoid that if possible followup after mammogram continue follow up with radiation and medical oncology continue anastrozole and Fosamax CC: Dr. Cotton
== END ==
LOC: WWCWWP 13:22
PROVIDERS: ATTEND Surgery
DX: C50.912 Malignant neoplasm of unspecified site of left female breast (principal); M54.2 Cervicalgia; M19.90 Unspecified osteoarthritis, unspecified site; E16.2 Hypoglycemia, unspecified; Z17.0 Estrogen receptor positive status [ER+]; Z88.8 Allergy status to other drugs, medicaments and biological substances; Z80.3 Family history of malignant neoplasm of breast; Z88.6 Allergy status to analgesic agent; Z88.5 Allergy status to narcotic agent; Z92.3 Personal history of irradiation

== ENCOUNTER → 2024-05-05 | Outpatient (CLI) | payer MEDICARE, BC ==
--- NOTE | 2024-05-07 09:51 | US ---
EXAMINATION TYPE: US abdomen limited DATE OF EXAM: 05/05/2024 COMPARISON: NONE CLINICAL INDICATION: Female, 79 years old with history of R59.0 LOCALIZED ENLARGED LYMPH NODES; Pt st ates she has a palpable area in her RUQ TECHNIQUE: Grayscale with or without color Doppler imaging of the area of hernia concern. Real-time scanning was performed by the therapeutic radiologist utilizing Valsalva and additional dynamic maneuve rs to assess for hernia. Images of the contralateral side were also acquired for direct comparison. FINDINGS: Assess for hernia at location of: RUQ Hypoechoic area seen at area of palpable measuring 1.9 x 2.1 x 0.5cm. This area did not change during valsalva. IMPRESSION: 1. Small nodule at the palpable region. [facility], , 05/07/2024 9:49 AM
== END | disposition home or self-care (01) ==
LOC: RADUSWWP 10:40
PROVIDERS: ATTEND Internal Medicine
DX: R59.0 Localized enlarged lymph nodes (principal)
CPT/HCPCS: 76705

== ENCOUNTER → 2024-05-05 | Outpatient (CLI) | payer MEDICARE, BC ==
--- NOTE | 2024-05-05 11:23 | MM ---
Reason for Exam: Follow-up at short interval from prior study. Last screening mammogram was performed 11 month(s) ago. Indicated Problems: Lump or thickening of the left side for 3 Week(s). Patient History: Menarche at age 11. First Full-Term at age 22. Postmenopausal. Patient has history of breast feeding. Breast cancer, left, age 77. Breast cancer, left, age 77. Previous chest radiation therapy at age 78. Estrogen for 1 year from age 51 until age 52. Progesterone for 1 year from age 51 until age 52. 09/01/2022, Lumpectomy on the Left side. 09/01/2022, Malignant US breast localization LT on the left side. 07/08/2022, Malignant US biopsy breast VAD LT on the left side. Cyst Aspiration on the Left side. 02/04/2000, Benign Ultrasound-Guided Cyst Aspiration on the left side. Maternal aunt had breast cancer, age 72. Prior Study Comparison: 12/11/2002 Bilateral Diagnostic Mammogram, [facility]. 03/12/2004 Bilateral Special View Mammogram, [facility]. 04/16/2005 Bilateral Screening Mammogram, [facility]. 07/02/2015 Screening Mammogram, [facility]. 07/29/2016 Bilateral Screening Mammogram, [facility]. 08/04/2017 Bilateral Screening Mammogram, [facility]. 09/07/2018 Bilateral Screening Mammogram, [facility]. 01/23/2020 Bilateral Screening Mammogram, [facility]. 05/02/2021 Bilateral Screening Mammogram, [facility]. 06/17/2022 Bilateral MG 3D screening mammo w/cad, [facility]. 06/26/2022 Left US breast limited LT, [facility]. 06/26/2022 Left MG 3D work up w/cad LT, [facility]. 07/08/2022 Left MG diagnostic mammo LT wo CAD., [facility]. 09/01/2022 Left MG diagnostic mammo LT wo CAD., [facility]. 06/18/2023 Bilateral MG 3D diag mammo w/cad [facility], [facility]. 12/13/2023 Left MG 3D diag mammo w/cad LT, [facility]. Tissue Density: There are scattered areas of fibroglandular density. Findings: Analyzed By CAD. The pattern is symmetrical. Postsurgical changes are within the left breast. Marker is utilized in the left axillary region of the palpable region. No underlying mammographic abnormality is evident No suspicious groups of microcalcifications, spiculated or lobular masses, architectural distortion or other secondary signs of malignancy are mammographically apparent. Overall Assessment: Incomplete: need additional imaging evaluation, BI-RAD 0 Management: Diagnostic Breast Ultrasound of the left breast. A negative mammogram report should not preclude additional follow up of suspicious palpable abnormalities. Patient should continue monthly self breast exam. A clinical breast exam by your physician is recommended on an annual basis and results should be correlated with mammographic findings. Note on Vero scores and lifetime risk: 1. A Vero score greater than 3% is considered moderate risk. If this is the case, consider specialist referral to assess eligibility for a risk reducing agent. 2. If overall lifetime risk for the development of breast cancer is 20% or higher, the patient may qualify for future screening with alternating mammogram and breast MRI. [facility], , 05/05/2024 11:20 AM. Electronically signed and approved by: Ramana Santos D.O. Radiologis
--- NOTE | 2024-05-05 13:24 | USB ---
Reason for Exam: Clinical finding. Patient History: Menarche at age 11. First Full-Term at age 22. Postmenopausal. Patient has history of breast feeding. Breast cancer, left, age 77. Breast cancer, left, age 77. Previous chest radiation therapy at age 78. Estrogen for 1 year from age 51 until age 52. Progesterone for 1 year from age 51 until age 52. 09/01/2022, Lumpectomy on the Left side. 09/01/2022, Malignant US breast localization LT on the left side. 07/08/2022, Malignant US biopsy breast VAD LT on the left side. Cyst Aspiration on the Left side. 02/04/2000, Benign Ultrasound-Guided Cyst Aspiration on the left side. Maternal aunt had breast cancer, age 72. Technique: Method: Targeted. Prior Study Comparison: 09/01/2022 Left MG diagnostic mammo LT wo CAD., [facility]. 06/18/2023 Bilateral MG 3D diag mammo w/cad ARNEL, [facility]. 12/13/2023 Left MG 3D diag mammo w/cad LT, [facility]. Findings: The axilla of the left breast was scanned. No solid or cystic masses are identified. There are couple of small lymph nodes present within the axillary region. No fixed cortex is evident.. Overall Assessment: Benign, BI-RAD 2 Management: Screening Mammogram of both breasts in 1 year. A clinical breast exam by your physician is recommended on an annual basis and results should be correlated with mammographic findings. This exam should not preclude additional follow-up of suspicious palpable abnormalities. Results were given to the patient verbally at the time of exam. [facility], , 05/05/2024 11:50 AM. Electronically signed and approved by: Ramana Santos D.O. Radiologis
== END | disposition home or self-care (01) ==
LOC: RADMAMWWP 10:38
PROVIDERS: ATTEND Surgery
DX: C50.912 Malignant neoplasm of unspecified site of left female breast (principal); R92.323 Mammographic fibroglandular density, bilateral breasts; Z85.3 Personal history of malignant neoplasm of breast; Z78.0 Asymptomatic menopausal state; Z80.3 Family history of malignant neoplasm of breast; Z92.3 Personal history of irradiation
CPT/HCPCS: 77066; 76642; G0279; 77062

== ENCOUNTER 2024-05-31 07:43 | Day surgery (SDC) | payer MEDICARE, BC ==
[2024-05-31 08:53] VITALS: RESP 16; TEMP 98
[2024-05-31 09:51] VITALS: BP 144/85; PULSE 75
--- NOTE | 2024-05-31 10:36 | US ---
EXAMINATION TYPE: US biopsy soft tissue/muscle DATE OF EXAM: 05/31/2024 10:16 AM COMPARISON: 05/05/2024 CLINICAL INDICATION:Female, 79 years old with history of C50.312 MALIG NEOPLASM OF LOWER-INNER QUADRA NT OF; , ATTENDING: Dr. Braden Noriega PROCEDURE: Informed consent was obtained. The risks and benefits of the procedure were discussed with the patien t. The site was marked. Timeout procedure was performed Ultrasound imaging demonstrates enhancement status superficial to the abdominal musculature on the ri ght. The patient was prepped, draped in the usual sterile fashion, and locally anesthetized with 1% lidoca ine. 3 x 18-gauge core needle biopsies were obtained.. Samples were sent to the pathology department for further analysis. Patient tolerated the procedure without incident and was sent home in stable condition. IMPRESSION: Successful ultrasound guided core biopsy right sided subcutaneous soft tissue mass. [facility], , 05/31/2024 10:34 AM
== END 2024-05-31 09:50 | disposition home or self-care (01) ==
LOC: RADPROMAIN 07:43
PROVIDERS: ATTEND Internal Medicine
DX: C50.312 Malignant neoplasm of lower-inner quadrant of left female breast (principal); R19.00 Intra-abdominal and pelvic swelling, mass and lump, unspecified site
CPT/HCPCS: 20206; 76942; 88305

== ENCOUNTER → 2024-06-29 | Outpatient (CLI) | payer MEDICARE, BC ==
[2024-06-29 10:12] VITALS: BP 148/90; PULSE 99; RESP 18; TEMP 98.6
--- NOTE | 2024-06-29 10:48 | P.PN ---
Subjective Progress Note Date: 06/29/24 06-29-24 Principal diagnosis: left breast stage IA invasive ductal cancer 2022 Felisha is a 78-year-old white female seen in consultation for Dr. Cotton regarding the stage IA left breast invasive ductal carcinoma. She underwent a bilateral screening mammogram on [id number]. Sibilated lesion in the lower inner aspect of the left breast. This led to a left breast diagnostic mammogram which was performed by 1922 as well as in ultrasound 06-26-22. On ultrasound the patient was noted to have a lesion in the left breast which was less than 1 cm in size and core biopsy was recommended. Core biopsy was performed and which revealed invasive low-grade ductal carcinoma grade 1 ER positive MA low positive and HER-2/tay negative. KI index is 5-10%. The patient did not feel any lumps masses or nodules of concern prior to her procedure. She had a mole removed frrom her right breast at the age of 14. She has not had any recent trauma or infection of the breast. She tolerated the procedure without difficulty, but did develop some bruising. The patient on 09-01-22 underwent a left breast lumpectomy and SNB. T 1.1cm nodes (-). Stage 1A [id number]+Her2- She completed radiation therapy on 11-10-22 Note medical oncology reviewed 08-05-23 on anestrazole; also on Fosamax She is not complaining of any lumps masses or nodules in either breast, she is complaining pain of left shoulder discomfort; this had started approximately 12 months ago however she declined physical therapy Bilateral mammogram on 06-18-23 BIRAD 3 repeat left breast mammogram in 6 months, she is not complaining of any new lumps masses or nodules of concern in either breast; repeat left breast mammogram on 12-13-23 BIRAD 2 bilateral mammogram on 05-05-24 and ultrasound of the left axilla BIRAD 2; personally reviewed and interpreted note 06-23-24 radiation oncology 06-23-24 finished 11-10-22 note 06-09-24 medical oncology reviewed on annastrazole with fosomax biopsy of abdominal wall lesion on 05-31-24 consistent with a lipoma; biopsy by radiology CAffiene: up to 6 cups/day Nicotine: none; parents smokers, son lives with her and he is a smoker Chocolate: weekly BCP: 18-20 Family History: father: throat cancer mother: bladder cancer maternal aunt: breast cancer Hormonal History: menarche: 11 G6G3M3 breast fed: yes, age at first : 23 menopause: 51 Surgical History: right leg keloid bilateral hip replacement right wrist fracture left elbow mole removal tubaligation tonsilectomy left breast lumpectomy and SNB Medical History: hypoglycemia allergic to statins arthritis Social History: nicotine: none alcohol: stopped in the ; wine occasional drugs: Marijuana in the not now - Constitutional Constitutional: Denies chills, Denies fever - EENT Eyes: denies blurred vision, denies pain Ears: deny: decreased hearing, tinnitus Ears, nose, mouth and throat: Reports sore throat, Denies headache - Breasts Breasts: bilateral: as per HPI - Cardiovascular Cardiovascular: Denies chest pain, Denies shortness of breath - Respiratory Respiratory: Denies cough - Gastrointestinal Comment: history of PUD Gastrointestinal: Denies abdominal pain, Denies diarrhea, Denies nausea, Denies vomiting - Genitourinary (Female) Genitourinary: Denies dysuria, Denies hematuria - Menstruation Menstruation: Reports postmenopausal - Musculoskeletal Musculoskeletal: Reports as per HPI - Integumentary Integumentary: Denies pruritus, Denies rash - Neurological Neurological: Denies numbness, Denies weakness - Psychiatric Psychiatric: Denies anxiety, Denies depression - Endocrine Endocrine: Reports weight change - Hematologic/Lymphatic Comment: DVT right leg superficial - Allergic/Immunologic Allergic/Immunologic: Reports as per HPI Past Medical History Past Medical History: Osteoarthritis (OA) Additional Past Medical History / Comment(s): 05/06/15 PT admitted to floor s/p total R hip arthroplasty. Other HX OF: BLEEDING ULCER, ANEMIA, hypoglycemia. 2009 Left hip replacement History of Any Multi-Drug Resistant Organisms: None Reported Past Surgical History: Joint Replacement, Tonsillectomy, Tubal Ligation Additional Past Surgical History / Comment(s): 05/06/15 Total R hip arthroplasty. Other SX HX: CONE BX, EPIDURAL INJECTIONS, LEFT HIP REPLACEMENT Past Anesthesia/Blood Transfusion Reactions: Postoperative Nausea & Vomiting (PONV) Additional Past Anesthesia/Blood Transfusion Reaction / Comment(s): Pt has recieved blood in the past without reaction. Smoking Status: Never smoker - Past Family History Mother Family Medical History: Cancer Additional Family Medical History / Comment(s): BLADDER, leukemia, CABG and valve sugeries. Father Family Medical History: Cancer Additional Family Medical History / Comment(s): THROAT, brain. Father at age 54yrs. Brother(s) Family Medical History: Cancer Additional Family Medical History / Comment(s): skin Medications and Allergies Home Medications Medication Instructions Recorded Confirmed Type Acetaminophen [Tylenol Extra 500 mg PO Q6H PRN 08/23/18 07/13/22 History Strength] Aspirin [[place] Aspirin EC] 81 mg PO DAILY 06/29/22 07/13/22 History Turmeric Root Extract [Turmeric 500 mg PO DAILY 06/29/22 07/13/22 History Curcumin] Allergies Allergy/AdvReac Type Severity Reaction Status Date / Time hydrocortisone Allergy Rash/Hives Verified 07/13/22 13:02 NSAIDS (Non-Steroidal AdvReac Severe GI Bleeding Verified 07/13/22 13:02 Anti-Inflamma Nxeifhf-XMJ-ZqK Reductase AdvReac Severe Myalgia Verified 07/13/22 13:02 Inhibitor [Opfnvac-Tbt-Prd Reductase Inhibitor] phenylenediamine Allergy Rash/Hives Uncoded 07/13/22 13:02 Objective - Vital Signs Vital signs: Vital Signs Temp 98.6 F 06/29/24 10:10 Pulse 99 06/29/24 10:10 Resp 18 06/29/24 10:10 BP 148/90 06/29/24 10:10 Pulse Ox 96 06/29/24 10:10 FiO2 Intake & Output 06/28/24 06/29/24 06/29/24 18:59 06:59 18:59 Weight 68.039 kg - Constitutional General appearance: Present: cooperative - EENT Eyes: Present: EOMI ENT: Present: hearing grossly normal - Neck Neck: Present: normal ROM - Respiratory Respiratory: bilateral: CTA - Cardiovascular Rhythm: regular Heart sounds: normal: S1, S2 - Integumentary Integumentary: Present: normal turgor - Musculoskeletal Musculoskeletal: Present: gait normal - Psychiatric Psychiatric: Present: A&O x's 3, appropriate affect, intact judgment & insight - Additional findings Additional findings: Breast Exam: BRA: 36B Inspection: bilateral grade 2 ptosis; palpation: right breast: Multi-positional exam fibrocystic changes no dominant masses or nodules of concern Right axilla: No adenopathy of concern Left breast: Multi-positional exam fibrocystic changes, post op and post radiation changes Left axilla: No adenopathy of concern Improve mobility of the left arm but some tenderness with motion of the shoulder area on the left Assessment and Plan Assessment: Impression: hypoglycemia allergic to statins arthritis Stage IA invasive ductal carcinoma left breast bilateral mammogram on 06-18-23 BIRAD 3 repeat left in 6 months done 12-13-23 BIRAD 2; bilateral mammogram on 05-05-24 and ultrasound of the left axilla BIRAD 2 left shoulder/ neck pain Plan: repeat bilateral mammogram in May 2025 with examination at that time We have discussed physical therapy and at this time she would like to avoid that if possible followup 6 months continue follow up with radiation and medical oncology continue anastrozole and Fosamax CC: Dr. Cotton
== END ==
LOC: WWCWWP 10:03
PROVIDERS: ATTEND Surgery
DX: C50.912 Malignant neoplasm of unspecified site of left female breast (principal); E16.2 Hypoglycemia, unspecified; M19.90 Unspecified osteoarthritis, unspecified site; M54.2 Cervicalgia; Z17.0 Estrogen receptor positive status [ER+]; Z17.21 Progesterone receptor positive status; Z80.3 Family history of malignant neoplasm of breast; Z88.8 Allergy status to other drugs, medicaments and biological substances; Z88.6 Allergy status to analgesic agent

== ENCOUNTER → 2024-10-16 | Outpatient (CLI) | payer MEDICARE, BC ==
--- NOTE | 2024-10-16 13:16 | BD ---
EXAMINATION TYPE: Axial Bone Density DATE OF EXAM: 10/16/2024 CLINICAL HISTORY: 79 years old Female. 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 History of Fracture in Adulthood: yes Secondary Osteoporosis: 1. Type 1 Diabetes: no 2. Hyperthyroidism: no 3. Menopause before 45: no 4. Malnutrition: no 5. Chronic liver disease: no Rheumatoid Arthritis: no Current Tobacco Use: no RISK FACTORS HISTORY OF: History of Wrist Fracture: rt wrist When: 5 years ago Surgery to Spine/Hip(right/left)/Wrist (right/left): shara hip replacement When: MEDICATIONS: Thyroid Medications: none Osteoporosis Medications: none EXAM MEASUREMENTS: Bone mineral densitometry was performed using the iPowow System. Bone mineral density as measured about the Lumbar spine is: ----- L1-L4(G/cm2): 1.020 T Score Values are as follows: ----- L1: -2.1 ----- L2: -1.1 ----- L3: -0.9 ----- L4: -1.4 ----- L1-L4: -1.3 Z Score Values are as follows: ----- L1: -0.4 ----- L2: 0.6 ----- L3: 0.8 ----- L4: 0.3 ----- L1-L4: 0.4 Bone mineral density has: increased 1.0 % since study of: 2021 Bone mineral density about the L Wrist (g/cm2): 0.517 T Score values are as follows: -----Dist. R+U: -3.4 -----Prox. R+U: -2.0 -----Radius total: -2.6 Z Score values are as follows: -----Dist. R+U: -0.8 -----Prox. R+U: 0.6 -----Radius total: 0.0 Bone mineral density has: increased 2.5 % since study of: 2021 no fraxin IMPRESSION: Osteopenia (T Score between -2.5 and -1) remains present. There remains slightly increased risk of fracture and the patient may be considered for treatment. Re-Screen 2-5 years. NOTE: T-SCORE=SD OF THE YOUNG ADULT MEAN. [facility], , 10/16/2024 1:14 PM
== END | disposition home or self-care (01) ==
LOC: RADBDWWP 10:41
PROVIDERS: ATTEND Family Medicine
DX: M81.0 Age-related osteoporosis without current pathological fracture (principal); M85.89 Other specified disorders of bone density and structure, multiple sites
CPT/HCPCS: 77080

== ENCOUNTER 2024-10-24 09:45 | Day surgery (SDC) | payer MEDICARE, BC ==
[~2024-10-24 09:45] MED LIST changes: -HEPARIN SODIUM,PORCINE/PF 5,000 UNIT/0.5 ML SYRINGE SQ PRN; -HYDROmorphone 0.5 MG/0.5 ML SYRINGE IVP PRN; -LACTATED RINGERS 1,000 ML IV SCH; -ONDANSETRON 4 MG/2 ML VIAL IVP ONE; -Pre Op ABX Message 1 EACH MISC MISCELLANE ONE
[2024-10-24] MEDS: LACTATED RINGERS 1,000 ML IV SCH (10:21)
[2024-10-24 10:22] VITALS: RESP 16; TEMP 97.2
[2024-10-24] MEDS: IV FLUID CONTINUATION 1,000 ML IV ONE (10:27)
[2024-10-24] MEDS ORDERED: PROPOFOL 10 MG/ML 20 ML VIAL IV ONE (10:49)
[2024-10-24] MEDS ORDERED: LIDOCAINE 1% INJ 10MG/ML (20 ML MDV) ONE (10:49)
--- NOTE | 2024-10-24 11:01 | P.PCN ---
Date of Procedure: 10/24/24 Procedure(s) Performed: BRIEF HISTORY: Patient is a 79-year-old, pleasant, white female scheduled for an upper endoscopy as a part of evaluation chronic epigastric pain for the last 4 months duration.. PROCEDURE PERFORMED: Esophagogastroduodenoscopy with biopsy. PREOPERATIVE DIAGNOSIS: Chronic epigastric pain. IV sedation per anesthesia. PROCEDURE: After informed consent was obtained, the patient was brought into the endoscopy unit. IV sedation was administered by Anesthesia under continuous monitoring. Initially the Olympus GIF-140 video endoscope was inserted into the mouth. Esophagus intubated without any difficulty. It was gradually advanced into the stomach and duodenum and carefully examined. The bulb had a 1 cm polyp that was biopsied and the second part of the duodenum appeared normal. The scope at this time was withdrawn to the stomach, adequately insufflated with air, and upon careful examination, mucosa of the antrum, mild gastritis and biopsies were done from this area. Mucosa body, cardia and the fundus appeared normal. The scope was then withdrawn into the esophagus. Small hiatal hernia noted. The GE junction was located at 39 cm from the incisors. There are 2 superficial erosions in the distal esophagus consistent with LA grade B reflux esophagitis. The rest of the esophagus appeared normal. There were no erosions or ulcerations seen and the patient tolerated the procedure well. IMPRESSION: 1. Small hiatal hernia. 2. LA grade B reflux esophagitis 3. Mild antral gastritis 4. 1 cm duodenal polyp in the duodenal bulb status post biopsy. RECOMMENDATIONS: The findings of this examination were discussed with the patient as well as her family. She was advised to follow-up with the biopsy results.. Trial of Prilosec 20 milligrams daily for 6 weeks. Follow-up in the office in 6 weeks.
[2024-10-24 11:09] VITALS: PULSE 80
[2024-10-24 11:18] VITALS: BP 128/79
[2024-10-24] MEDS: IV FLUID CONTINUATION 800 ML IV ONE (11:18)
== END 2024-10-24 11:37 | disposition home or self-care (01) ==
LOC: ORWHC2ENDO 09:45
PROVIDERS: ATTEND Internal Medicine Gastroenterology
DX: K29.50 Unspecified chronic gastritis without bleeding (principal); K31.7 Polyp of stomach and duodenum; K21.00 Gastro-esophageal reflux disease with esophagitis, without bleeding; K44.9 Diaphragmatic hernia without obstruction or gangrene; K31.89 Other diseases of stomach and duodenum
CPT/HCPCS: 43239; J2003; J2704; 88305

== ENCOUNTER → 2024-12-28 | Outpatient (CLI) | payer MEDICARE, BC ==
[2024-12-28 12:07] VITALS: BP 146/91; PULSE 72; RESP 17; TEMP 97.4
--- NOTE | 2024-12-28 12:23 | P.PN ---
Subjective Progress Note Date: 12/28/24 Principal diagnosis: left breast stage IA invasive ductal cancer 2022 [id number]+Her2-1 oncotype 15 12-28-24 Principal diagnosis: left breast stage IA invasive ductal cancer 2022 [id number]+Her2-1 oncotype 15 Felisha is a 79-year-old white female seen in consultation for Dr. Cotton regarding a stage IA left breast invasive ductal carcinoma. She underwent a bilateral screening mammogram on [id number]. Spiculated lesion in the lower inner aspect of the left breast. This led to a left breast diagnostic mammogram which was performed by 1922 as well as in ultrasound 06-26-22. On ultrasound the patient was noted to have a lesion in the left breast which was less than 1 cm in size and core biopsy was recommended. Core biopsy was performed and which revealed invasive low-grade ductal carcinoma grade 1 ER positive PA low positive and HER-2/tay negative. KI index is 5-10%. The patient did not feel any lumps masses or nodules of concern prior to her procedure. She had a mole removed from her right breast at the age of 14. She has not had any recent trauma or infection of the breast. She tolerated the procedure without difficulty, but did develop some bruising. The patient on 09-01-22 underwent a left breast lumpectomy and SNB. T 1.1cm nodes (-). Stage 1A [id number]+Her2- She completed radiation therapy on 11-10-22 Note medical oncology reviewed 09-15-24 on anestrazole; also on Fosamax She is not complaining of any lumps masses or nodules in either breast, she states her left shoulder is better now; she declined physical therapy Bilateral mammogram on 06-18-23 BIRAD 3 repeat left breast mammogram in 6 months, she is not complaining of any new lumps masses or nodules of concern in either breast; repeat left breast mammogram on 12-13-23 BIRAD 2 bilateral mammogram on 05-05-24 and ultrasound of the left axilla BIRAD 2; personally reviewed and interpreted Due for bilateral mammogram in April 2025 biopsy of abdominal wall lesion on 05-31-24 consistent with a lipoma; biopsy by radiology Since her last visit she has had an EGD and told a lesion which was biopsied and noncancer. She stopped her magnesium and her vitamins and after that her left shoulder felt better. She had a 10-day period of vaginal bleeding in July 2024, she saw RN APPEALS and they did not find any lesions of concern, she was noted to have 2 small fibroids. The bleeding has stopped. 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 arthritis Social History: nicotine: none alcohol: stopped in the ; wine occasional drugs: Marijuana in the not now - Constitutional Constitutional: Denies chills, Denies fever - EENT Eyes: denies blurred vision, denies pain Ears: deny: decreased hearing, tinnitus Ears, nose, mouth and throat: Reports sore throat, Denies headache - Breasts Breasts: bilateral: as per HPI - Cardiovascular Cardiovascular: Denies chest pain, Denies shortness of breath - Respiratory Respiratory: Denies cough - Gastrointestinal Comment: history of PUD Gastrointestinal: Denies abdominal pain, Denies diarrhea, Denies nausea, Denies vomiting - Genitourinary (Female) Genitourinary: Denies dysuria, Denies hematuria - Menstruation Menstruation: Reports postmenopausal - Musculoskeletal Musculoskeletal: Reports as per HPI - Integumentary Integumentary: Denies pruritus, Denies rash - Neurological Neurological: Denies numbness, Denies weakness - Psychiatric Psychiatric: Denies anxiety, Denies depression - Endocrine Endocrine: Reports weight change - Hematologic/Lymphatic Comment: DVT right leg superficial - Allergic/Immunologic Allergic/Immunologic: Reports as per HPI Past Medical History Past Medical History: Osteoarthritis (OA) Additional Past Medical History / Comment(s): 05/06/15 PT admitted to floor s/p total R hip arthroplasty. Other HX OF: BLEEDING ULCER, ANEMIA, hypoglycemia. 2008 Left hip replacement History of Any Multi-Drug Resistant Organisms: None Reported Past Surgical History: Joint Replacement, Tonsillectomy, Tubal Ligation Additional Past Surgical History / Comment(s): 05/06/15 Total R hip arthroplasty. Other SX HX: CONE BX, EPIDURAL INJECTIONS, LEFT HIP REPLACEMENT Past Anesthesia/Blood Transfusion Reactions: Postoperative Nausea & Vomiting (PONV) Additional Past Anesthesia/Blood Transfusion Reaction / Comment(s): Pt has recieved blood in the past without reaction. Smoking Status: Never smoker - Past Family History Mother Family Medical History: Cancer Additional Family Medical History / Comment(s): BLADDER, leukemia, CABG and valve sugeries. Father Family Medical History: Cancer Additional Family Medical History / Comment(s): THROAT, brain. Father at age 54yrs. Brother(s) Family Medical History: Cancer Additional Family Medical History / Comment(s): skin Medications and Allergies Home Medications Medication Instructions Recorded Confirmed Type Acetaminophen [Tylenol Extra 500 mg PO Q6H PRN 08/23/18 07/13/22 History Strength] Aspirin [[place] Aspirin EC] 81 mg PO DAILY 06/29/22 07/13/22 History Turmeric Root Extract [Turmeric 500 mg PO DAILY 06/29/22 07/13/22 History Curcumin] Allergies Allergy/AdvReac Type Severity Reaction Status Date / Time hydrocortisone Allergy Rash/Hives Verified 07/13/22 13:02 NSAIDS (Non-Steroidal AdvReac Severe GI Bleeding Verified 07/13/22 13:02 Anti-Inflamma Fswezih-FWT-VpK Reductase AdvReac Severe Myalgia Verified 07/13/22 13:02 Inhibitor [Artppig-Fwb-Hmz Reductase Inhibitor] phenylenediamine Allergy Rash/Hives Uncoded 07/13/22 13:02 Objective - Constitutional General appearance: Present: cooperative - EENT Eyes: Present: EOMI ENT: Present: hearing grossly normal - Neck Neck: Present: normal ROM - Respiratory Respiratory: bilateral: CTA - Cardiovascular Rhythm: regular Heart sounds: normal: S1, S2 - Integumentary Integumentary: Present: normal turgor - Musculoskeletal Musculoskeletal: Present: gait normal - Psychiatric Psychiatric: Present: A&O x's 3, appropriate affect, intact judgment & insight - Additional findings Additional findings: Breast Exam: BRA: 36B Inspection: bilateral grade 2 ptosis; palpation: right breast: Multi-positional exam fibrocystic changes no dominant masses or nodules of concern Right axilla: No adenopathy of concern Left breast: Multi-positional exam fibrocystic changes, post op and post radiation changes Left axilla: No adenopathy of concern Improve mobility of the left arm Assessment and Plan Assessment: Impression: hypoglycemia allergic to statins arthritis Stage IA invasive ductal carcinoma left breast bilateral mammogram on 06-18-23 BIRAD 3 repeat left in 6 months done 12-13-23 BIRAD 2; bilateral mammogram on 05-05-24 and ultrasound of the left axilla BIRAD 2 left shoulder/ neck pain Plan: repeat bilateral mammogram in May 2025 with examination at that time continue follow up with radiation and medical oncology continue anastrozole and Fosamax CC: Dr. Cotton
== END ==
LOC: WWCWWP 11:55
PROVIDERS: ATTEND Surgery
DX: C50.912 Malignant neoplasm of unspecified site of left female breast (principal); M19.90 Unspecified osteoarthritis, unspecified site; E16.2 Hypoglycemia, unspecified; M54.2 Cervicalgia; Z88.8 Allergy status to other drugs, medicaments and biological substances; Z88.6 Allergy status to analgesic agent